=== PATIENT | female | born 1960 | race Caucasian/White ===

== ENCOUNTER → 2016-08-11 | Outpatient (CLI) | payer OTHER ==
--- NOTE | 2016-08-11 13:31 | CT ---
EXAMINATION TYPE: CT sinus wo con DATE OF EXAM: 08/11/2016 1:17 PM COMPARISON: NONE HISTORY: Patient complains of recurrent sinus infections, pressure, and headaches. CT DLP: 622.3 mGycm Automated exposure control for dose reduction was used. FINDINGS: There is a nasal septal deviation. There is no significant mucosal thickening of the visualized paran dona sinuses. Intracranial intraorbital structures have a normal appearance. Nasopharynx and oropharynx are symmetr ic. IMPRESSION: NO CT EVIDENCE OF SINUSITIS.
== END ==
LOC: RADCTMAIN 13:01
PROVIDERS: ATTEND Otolaryngology
DX: J32.9 Chronic sinusitis, unspecified (principal)
CPT/HCPCS: 70486

== ENCOUNTER → 2016-11-03 | Outpatient (CLI) | payer OTHER ==
[2016-11-03 10:16] LABS: EKG EKG PERFORMED
[2016-11-03 10:41] LABS: Basophils % (A) 0 %; CH 31.5; CHCM 33.7; Eosinophils # (A) 0.2 k/uL (0-0.7); Eosinophils % (A) 3 %; HCT 41.6 % (34.0-46.0); HGB 13.9 gm/dL (11.4-16.0); Luc # (Auto) 0.25; Luc % (Auto) 3; Lymphocytes % (A) 26 %; MCH 31.4 pg (25.0-35.0); MCHC 33.4 g/dL (31.0-37.0); Mean Platelet Volume 7.4; Monocytes # (A) 0.5 k/uL (0-1.0); Monocytes % (A) 7 %; Neutrophils # (A) 4.5 k/uL (1.3-7.7); Neutrophils % (A) 60 %; RBC 4.42 m/uL (3.80-5.40); RDW 13.1 % (11.5-15.5); WBC 7.5 k/uL (3.8-10.6)
[2016-11-03 10:53] LABS: Anion Gap 8 mmol/L; Blood Urea Nitrogen 19 mg/dL (7-17); Calcium 9.4 mg/dL (8.4-10.2); Carbon Dioxide 28 mmol/L (22-30); Chloride 106 mmol/L (98-107); Glucose 97 mg/dL (74-99); Non-African American GFR(MDRD) >60 (>60 ml/min/1.73 sqM); Potassium 4.5 mmol/L (3.5-5.1); Sodium 142 mmol/L (137-145)
== END | disposition home or self-care (01) ==
LOC: LABWHC1 10:05
PROVIDERS: ATTEND Obstetrics & Gynecology
DX: Z01.810 Encounter for preprocedural cardiovascular examination (principal); Z01.812 Encounter for preprocedural laboratory examination
CPT/HCPCS: 80048; 85025; 93005

== ENCOUNTER 2016-11-11 05:56 | Observation (INO) | payer OTHER ==
[2016-11-06 14:48] VITALS: BMI 24.5
--- NOTE | 2016-11-10 18:12 | P.HPOB ---
History of Present Illness H&P Date: 11/10/16 Chief Complaint: Pelvic organ prolapse 56-year-old presents for total vaginal hysterectomy with anterior repair. She has a grade 2 cystocele with uterine prolapse. Review of Systems All systems: negative Constitutional: Denies chills, Denies fever Eyes: denies blurred vision, denies pain Ears, nose, mouth and throat: Denies headache, Denies sore throat Cardiovascular: Denies chest pain, Denies shortness of breath Respiratory: Denies cough Gastrointestinal: Denies abdominal pain, Denies diarrhea, Denies nausea, Denies vomiting Genitourinary: Denies dysuria, Denies hematuria Musculoskeletal: Denies myalgias Integumentary: Denies pruritus, Denies rash Neurological: Denies numbness, Denies weakness Psychiatric: Denies anxiety, Denies depression Endocrine: Denies fatigue, Denies weight change Past Medical History Past Medical History: Asthma, COPD, Osteoarthritis (OA) Additional Past Medical History / Comment(s): STRESS INCONTINENCE ,KIDNEY STONES , IRREGULAR HEARTBEAT,CLAUSTROPHOBIA History of Any Multi-Drug Resistant Organisms: None Reported Past Surgical History: Cholecystectomy Additional Past Surgical History / Comment(s): WISDOM TEETH Past Anesthesia/Blood Transfusion Reactions: No Reported Reaction Past Psychological History: Anxiety, Depression, Panic Disorder Smoking Status: Current every day smoker Additional Past Alcohol Use History / Comment(s): HISTORY OF CLAUSTROPHOBIA - Past Family History Mother Family Medical History: No Reported History Medications and Allergies Home Medications Medication Instructions Recorded Confirmed Type Albuterol Inhaler [Ventolin Hfa 2 puff INHALATION DIRECTED PRN 01/08/1511/04 History Inhaler] Budesonide-Formot 160-4.5 Mcg 1 puff INHALATION BID 01/08/15 11/04/16 History [Symbicort 160-4.5 Mcg Inhaler] Carvedilol [Carvedilol] 12.5 mg PO DAILY 01/08/15 11/04/16 History Ikemwck-Zire-Xadq [id number] 2 each PO Q6HR PRN 11/04/16 11/04/16 History [Excedrin] Carvedilol [Coreg] 6.25 mg PO 2100 11/04/16 11/04/16 History Fluticasone Nasal [place] [Flonase 2 spr EA NOSTRIL DAILY 11/04/16 11/04/16 History Nasal [place]] Multivitamin [Multiple Vitamins] 1 each PO DAILY 11/04/16 11/06/16 History Zolpidem Tartrate [Ambien Cr] 12.5 mg PO HS 11/04/16 11/04/16 History Acetaminophen Tab [Tylenol Tab] 1,000 mg PO Q6HR PRN 11/06/16 11/06/16 History Allergies Allergy/AdvReac Type Severity Reaction Status Date / Time codeine Allergy Rash/Hives Verified 11/04/16 13:28 hydrocodone bitartrate Allergy Nausea & Verified 11/04/16 13:28 [From Vicodin] Vomiting steroids Allergy Rapid Uncoded 11/04/16 13:28 Heart Rate Exam Osteopathic Statement: *. No significant issues noted on an osteopathic structural exam other than those noted in the History and Physical/Consult. Heart: Regular rate and rhythm Lungs: Clear to auscultation bilaterally Abdomen: Soft, nontender Extremities: Negative Homans sign Assessment and Plan (1) Cystocele with uterine prolapse Status: Acute Plan: 1. Total vaginal hysterectomy with anterior repair
[~2016-11-11 05:56] MED LIST: DEXAMETHASONE SOD PHOSPHATE 10 MG/ML 1 ML VIAL IV ONE; LIDOCAINE 1% 20 ML VIAL (10MG/ML) FOR IV START INTRADERMA PRN; MIDAZOLAM 2 MG/2 ML VIAL IV PRN; ONDANSETRON 4 MG/2 ML VIAL IVP ONE; SCOPOLAMINE 1.5MG/72HR PATCH TRANSDERM ONE; ceFAZolin 2 GM in SODIUM CHLORIDE 0.9% 100 ML IVPB ONE
[2016-11-11] MEDS: LACTATED RINGERS 1,000 ML IV SCH ×2 (06:13→13:55)
[2016-11-11] MEDS ORDERED: BACITRACIN 500 UNIT/GM OINT 28.4 GM TUBE TOPICAL ONE (07:55)
[2016-11-11] MEDS ORDERED: VASOPRESSIN 20 UNIT/ML 1 ML VIAL SQ ONE (07:56)
[2016-11-11] MEDS ORDERED: LACTATED RINGERS 1,000 ML IV ONE (08:29)
[2016-11-11] MEDS: HYDROmorphone 1 MG/ML 1 ML SYRINGE IVP PRN ×2 (09:15→09:20)
--- NOTE | 2016-11-11 09:25 | P.OP ---
Date of Procedure: 11/11/16 Preoperative Diagnosis: 1. Cystocele with uterine prolapse Postoperative Diagnosis: 1. Cystocele with uterine prolapse Procedure(s) Performed: Total vaginal hysterectomy with anterior repair Implants: Anesthesia: RANULFO Surgeon: Bryanna Watkins Director External Communications #1: Edna Farmer Estimated Blood Loss (ml): 30 IV fluids (ml): 1,000 Urine output (ml): 200 Pathology: other (Uterus, cervix, vaginal mucosa) Condition: stable Disposition: PACU Indications for Procedure: Operative Findings: Normal uterus, grade 2 cystocele, normal ovaries and tubes. Description of Procedure: Patient is taken the operating room and general anesthesia was obtained without difficulty. She is prepped draped in normal sterile fashion dorsal body position, legs placed in candycane stirrups. Weighted speculum placed in vagina the anterior lip the cervix was grasped with single-tooth tenaculum. The cervical vaginal junction was infiltrated with diluted vasopressin. A circumferential incision was made with the scalpel. The vaginal mucosa was peeled off of the cervix. The cardinal ligaments were clamped with [place] clamps cut and suture ligated. The posterior peritoneum was entered sharply with the Metzenbaums and the Iza weighted speculum was placed. The uterosacral ligaments were clamped with [place] clamps, cut and suture ligated. The anterior peritoneum was entered sharply with the Metzenbaums and another anterior retractor was placed. The uterine arteries on both sides were clamped cut and suture ligated up the broad ligaments and then to the utero-ovarian ligaments. These were then clamped cut and suture ligated as well. The uterus was removed from the vagina. Hemostasis was assured. Peritoneum was closed using 0 Vicryl in a pursestring suture. The anterior vaginal mucosa was grasped with Allis clamps and then infiltrated with diluted vasopressin. A linear incision was made with the Metzenbaums. The vaginal mucosa was peeled off the underlying fascia. Francie plication stitches were then placed. The excess vaginal mucosa was trimmed. Vaginal mucosa was then closed using 0 Vicryl in a running locked fashion. Alonzo catheter was placed and clear urine was seen. Vaginal packing was then placed. Patient tolerated the procedure well. Sponge and instrument counts are correct 2. She was taken to recovery room in stable condition.
[2016-11-11] MEDS ORDERED: METOCLOPRAMIDE 5 MG/ML 2 ML VIAL IVP PRN (09:26)
[2016-11-11] MEDS ORDERED: ACETAMINOPHEN TAB 500 MG TAB PO PRN (09:26)
[2016-11-11] MEDS ORDERED: HYDROcodone/APAP 7.5-325MG 1 EACH TAB PO PRN (09:26)
[2016-11-11] MEDS ORDERED: ONDANSETRON 4 MG/2 ML VIAL IVP PRN (09:26)
[2016-11-11] MEDS ORDERED: SIMETHICONE 80 MG CHEWABLE PO PRN (09:26)
[2016-11-11] MEDS ORDERED: ASPIRIN-ACET-CAFF 250-250-65MG 1 EACH TAB PO PRN (09:26)
[2016-11-11] MEDS ORDERED: diphenhydrAMINE 50 MG/ML 1 ML VIAL IVP PRN (09:26)
[2016-11-11] MEDS ORDERED: ALBUTEROL NEBULIZED 2.5 MG/3 ML INHALATION PRN (09:26)
[2016-11-11] MEDS ORDERED: fentaNYL (PF) 50 MCG/ML 2 ML AMP IV ONE ×2 (09:35→09:54)
[2016-11-11] MEDS ORDERED: FLUTICASONE 50MCG/SPRAY NASAL 16GM EA NOSTRIL SCH (10:00)
[2016-11-11] MEDS: KETOROLAC 30 MG/ML 1 ML VIAL IVP PRN ×2 (11:56→18:40)
[2016-11-11] MEDS: CARVEDILOL 12.5 MG TAB PO SCH (13:57)
[2016-11-11] MEDS: SENNOSIDES-DOCUSATE SODIUM 1 EACH TAB PO SCH ×2 (15:09→20:32)
[2016-11-11] MEDS: SYMBICORT 160-4.5 MCG INHALER INHALATION SCH ×3 (16:46→19:07)
[2016-11-11 17:38] VITALS: RESP 16
[2016-11-11] MEDS ORDERED: ZOLPIDEM 5 MG TAB PO SCH (21:00)
[2016-11-11] MEDS ORDERED: CARVEDILOL 6.25 MG TAB PO SCH (21:00)
[2016-11-12] MEDS: KETOROLAC 30 MG/ML 1 ML VIAL IVP PRN ×2 (01:43→08:26)
[2016-11-12] MEDS: LACTATED RINGERS 1,000 ML IV SCH (01:56)
[2016-11-12 06:04] LABS: Basophils % (A) 0 %; CH 31.4; CHCM 32.8; Eosinophils # (A) 0.1 k/uL (0-0.7); Eosinophils % (A) 1 %; HCT 37.6 % (34.0-46.0); HDW 2.46; HGB 12.2 gm/dL (11.4-16.0); Luc # (Auto) 0.22; Luc % (Auto) 3; Lymphocytes # (A) 2.2 k/uL (1.0-4.8); Lymphocytes % (A) 25 %; MCH 31.1 pg (25.0-35.0); MCHC 32.4 g/dL (31.0-37.0); MCV 96.2 fL (80.0-100.0); Mean Platelet Volume 7.5; Monocytes # (A) 0.6 k/uL (0-1.0); Monocytes % (A) 7 %; Neutrophils # (A) 5.7 k/uL (1.3-7.7); Neutrophils % (A) 65 %; RBC 3.91 m/uL (3.80-5.40); RDW 13.4 % (11.5-15.5); WBC 8.7 k/uL (3.8-10.6); WBC (Perox) 9.01
[2016-11-12] MEDS: CARVEDILOL 12.5 MG TAB PO SCH (08:47)
[2016-11-12] MEDS: SENNOSIDES-DOCUSATE SODIUM 1 EACH TAB PO SCH (08:47)
[2016-11-12] MEDS: SYMBICORT 160-4.5 MCG INHALER INHALATION SCH (09:28)
[2016-11-12 09:52] VITALS: BP 110/66; PULSE 56; TEMP 98.4
--- NOTE | 2016-11-12 11:14 | P.DS ---
Providers Date of admission: 11/12/16 03:54 Expected date of discharge: 11/12/16 Attending physician: Bryanna Watkins Primary care physician: Acosta Galaviz - Discharge Diagnosis(es) (1) Cystocele with uterine prolapse Current Visit: Yes Status: Resolved (2) H/O total vaginal hysterectomy Current Visit: Yes Status: Acute Hospital Course: Patient presented for total vaginal hysterectomy with anterior repair and did undergo this procedure without complication. Postoperative day #1 she was doing very well. Tolerating regular diet, ambulating voiding without difficulty. Her pain is well-controlled. She denies nausea, vomiting, chest pain, shortness of breath or calf pain. She'll be discharged home postoperative day #1 in stable condition to follow-up with me in 4 weeks. Plan - Discharge Summary New Discharge Prescriptions: New HYDROcodone/APAP 5-325MG [Barn[place] 5-325] 1 - 2 tab PO Q6HR PRN #30 tab PRN Reason: Pain Ibuprofen [Motrin] 600 mg PO Q6HR PRN #30 tab PRN Reason: Mild Pain Or Fever >= 100.5 No Action Carvedilol [Carvedilol] 12.5 mg PO DAILY Budesonide-Formot 160-4.5 Mcg [Symbicort 160-4.5 Mcg Inhaler] 1 puff INHALATION RT-BID Albuterol Inhaler [Ventolin Hfa Inhaler] 2 puff INHALATION RT-Q4H PRN PRN Reason: Shortness Of Breath Fluticasone Nasal [place] [Flonase Nasal [place]] 2 spr EA NOSTRIL DAILY Zolpidem Tartrate [Ambien Cr] 12.5 mg PO HS [id number]-Huxi-Zpwl [id number] [Excedrin] 2 tab PO Q6HR PRN PRN Reason: Headache Multivitamin [Multiple Vitamins] 1 tab PO DAILY Carvedilol [Coreg] 6.25 mg PO HS@2100 Acetaminophen Tab [Tylenol Tab] 1,000 mg PO Q6HR PRN PRN Reason: Pain Discharge Medication List Albuterol Inhaler [Ventolin Hfa Inhaler] 2 puff INHALATION RT-Q4H PRN 01/08/15 [ History] Budesonide-Formot 160-4.5 Mcg [Symbicort 160-4.5 Mcg Inhaler] 1 puff INHALATION RT-BID 01/08/15 [History] Carvedilol [Carvedilol] 12.5 mg PO DAILY 01/08/15 [History] Jxzikal-Xquq-Kptd [id number] [Excedrin] 2 tab PO Q6HR PRN 11/04/16 [History] Carvedilol [Coreg] 6.25 mg PO HS@2100 11/04/16 [History] Fluticasone Nasal [place] [Flonase Nasal [place]] 2 spr EA NOSTRIL DAILY 11/04/16 [ History] Multivitamin [Multiple Vitamins] 1 tab PO DAILY 11/04/16 [History] Zolpidem Tartrate [Ambien Cr] 12.5 mg PO HS 11/04/16 [History] Acetaminophen Tab [Tylenol Tab] 1,000 mg PO Q6HR PRN 11/06/16 [History] HYDROcodone/APAP 5-325MG [[place] 5-325] 1 - 2 tab PO Q6HR PRN #30 tab 11/12/16 [ Rx] Ibuprofen [Motrin] 600 mg PO Q6HR PRN #30 tab 11/12/16 [Rx] Follow up Appointment(s)/Referral(s): Bryanna Watkins DO [Doctor of Osteopathic Medicine] - 4 Weeks Patient Instructions/Handouts: *Surgery [facility] - Scopalamine Patch Instructions
== END 2016-11-12 12:05 | disposition home or self-care (01) ==
LOC: OR 05:56 → 6PED 09:06 → OR 11-12 03:54 → 6PED 11-12 03:54
PROVIDERS: ADMIT Obstetrics & Gynecology; ATTEND Obstetrics & Gynecology
DX: N81.4 Uterovaginal prolapse, unspecified (principal); N39.3 Stress incontinence (female) (male); F40.240 Claustrophobia; Z87.442 Personal history of urinary calculi; J44.9 Chronic obstructive pulmonary disease, unspecified; M19.90 Unspecified osteoarthritis, unspecified site; I49.9 Cardiac arrhythmia, unspecified; F32.9 Major depressive disorder, single episode, unspecified; F41.0 Panic disorder [episodic paroxysmal anxiety]; F17.200 Nicotine dependence, unspecified, uncomplicated; Z79.899 Other long term (current) drug therapy; Z79.82 Long term (current) use of aspirin; Z88.5 Allergy status to narcotic agent; Z88.8 Allergy status to other drugs, medicaments and biological substances
CPT/HCPCS: 58260; 94640 ×2; 86900; 86901; 88305; 85025; 86850; 88302; G0378; J0690; J2405; J3010; J1885 ×2; J1170

== ENCOUNTER 2018-12-15 17:57 | Observation (INO) | payer OTHER ==
[2018-12-15] MEDS ORDERED: SODIUM CHLORIDE 0.9% 1,000 ML IV ONE (18:23)
--- NOTE | 2018-12-15 18:25 | ED ---
General Adult HPI - General Chief complaint: Shortness of Breath Stated complaint: Dizzy, arm/leg tingling, chest pain Time Seen by Provider: 12/15/18 18:12 Source: patient Mode of arrival: wheelchair Limitations: no limitations - History of Present Illness Initial comments: 50-year-old female presenting with shortness of breath. Patient states she was at home when she suddenly felt like she was unable to breathe, like there was a "stone in her head", and had tingling of both upper and lower extremities. She states this is third time this is happened in 2 weeks, and she has no previous history of similar episodes. She has had a previous history of tobacco abuse and has tried her rescue inhaler for the symptoms without relief. She states she presented to her primary care physician last week who treated her's for sinus infection but otherwise did not find any cause for her symptoms. She denies any chest pain, history of DVT/PE, recent surgery, active cancer. She denies any fevers or leg swelling. Denies any previous history of thyroid disease. - Related Data Home Medications Medication Instructions Recorded Confirmed Albuterol Inhaler [Ventolin Hfa 2 puff INHALATION RT-Q4H PRN 01/08/15 12/15/18 Inhaler] Budesonide-Formot 160-4.5 Mcg 1 puff INHALATION RT-BID 01/08/15 12/15/18 [Symbicort 160-4.5 Mcg Inhaler] Carvedilol 12.5 mg PO DAILY 01/08/15 12/15/18 Carvedilol [Coreg] 6.25 mg PO HS@2100 11/04/16 12/15/18 Multivitamin [Multiple Vitamins] 1 tab PO DAILY 11/04/16 12/15/18 Zolpidem Tartrate [Ambien Cr] 12.5 mg PO HS 11/04/16 12/15/18 Ascorbic Acid [Vitamin C] 1,000 mg PO DAILY 12/15/18 12/15/18 Cefdinir [Omnicef] 300 mg PO BID 12/15/18 12/15/18 Allergies Allergy/AdvReac Type Severity Reaction Status Date / Time codeine Allergy Rash/Hives Verified 12/15/18 19:19 hydrocodone bitartrate Allergy Nausea & Verified 12/15/18 19:19 [From Vicodin] Vomiting steroids Allergy Rapid Uncoded 12/15/18 18:08 Heart Rate Review of Systems ROS Statement: Those systems with pertinent positive or pertinent negative responses have been documented in the HPI. Review of Systems Constitutional: Denies fever, chills Eyes: Denies change in vision, Denies pain Ears, nose, mouth, throat: Denies headaches, Denies sore throat Cardiovascular: Denies chest pain. Denies palpitations Respiratory: Positive shortness of breath, Denies cough Gastrointestinal: Denies abdominal pain. Denies nausea, vomiting, diarrhea. Genitourinary: Denies hematuria, Denies infections Musculoskeletal: Denies pain, Denies swelling Integumentary: Denies rash Neurological: Denies headache, focal weakness, focal numbness Psychiatric: Denies anxiety, Denies depression Hematologic/Lymphatic: Denies easy bleeding or bruising ROS Other: All systems not noted in ROS Statement are negative. Past Medical History Past Medical History: Atrial Flutter Additional Past Medical History / Comment(s): STRESS INCONTINENCE ,KIDNEY STONES, IRREGULAR HEARTBEAT,CLAUSTROPHOBIA History of Any Multi-Drug Resistant Organisms: None Reported Past Surgical History: Cholecystectomy Additional Past Surgical History / Comment(s): WISDOM TEETH Past Anesthesia/Blood Transfusion Reactions: No Reported Reaction Past Psychological History: No Psychological Hx Reported Smoking Status: Former smoker Past Alcohol Use History: Daily Past Drug Use History: None Reported - Past Family History Mother Family Medical History: Dementia Father Family Medical History: COPD Additional Family Medical History / Comment(s): 4 vessel CABG, 6 years ago General Exam - General Exam Comments Initial Comments: General: Awake, alert, No acute Distress HENT: Normocephalic. Atraumatic Eyes: PERRL. EOMI. No scleral icterus. No injected conjunctiva Neck: Full ROM Chest/Lungs: Clear to auscultation bilaterally. No wheezing, rhonchi, or rales Cardiac: Regular rate, rhythm. No murmurs or rubs Abdomen/GI: Soft, nontender, nondistended. No rebound, guarding, or rigidity. Musculoskeletal: Full ROM Skin: Warm, dry, intact Neurologic: A/Ox3, no weakness, no sensory deficit, no abnormal gait, no coordination deficit Limitations: no limitations Course Vital Signs 12/15/18 12/15/18 12/15/18 18:03 19:50 21:14 Temperature 97.7 F 97.7 F Pulse Rate 65 63 Respiratory 16 12 Rate Blood Pressure 146/72 132/69 O2 Sat by Pulse 100 97 97 Oximetry Medical Decision Making - Medical Decision Making 58-year-old female presenting with shortness of breath. Initial exam the patient is awake, alert, no acute distress. VSS. Patient's wells PE score is 1.5. Her d-dimer was negative. Her lung sounds are clear and she is not wheezing. There is no evidence of pneumonia. The remainder of her laboratory workup is negative for acute process. EKG showed normal sinus rhythm with T- wave inversions in 3 and aVF which are different than EKG from 2017. Heart score 4. With Dr. sheet is agreeable to admission for stress test in the a.m. - Lab Data Result diagrams: 12/15/18 18:33 12/15/18 18:33 Lab Results 12/15/18 12/15/18 12/15/18 Range/Units 18:33 18:33 18:33 WBC 6.1 (3.8-10.6) k/uL RBC 4.28 (3.80-5.40) m/uL Hgb 12.9 (11.4-16.0) gm/dL Hct 39.3 (34.0-46.0) % MCV 91.9 (80.0-100.0) fL MCH 30.2 (25.0-35.0) pg MCHC 32.9 (31.0-37.0) g/dL RDW 13.7 (11.5-15.5) % Plt Count 227 (150-450) k/uL Neutrophils % 51 % Lymphocytes % 33 % Monocytes % 8 % Eosinophils % 4 % Basophils % 1 % Neutrophils # 3.1 (1.3-7.7) k/uL Lymphocytes # 2.0 (1.0-4.8) k/uL Monocytes # 0.5 (0-1.0) k/uL Eosinophils # 0.2 (0-0.7) k/uL Basophils # 0.0 (0-0.2) k/uL D-Dimer 0.52 (<0.60) mg/L FEU Sodium 140 (137-145) mmol/L Potassium 4.0 (3.5-5.1) mmol/L Chloride 106 (98-107) mmol/L Carbon Dioxide 27 (22-30) mmol/L Anion Gap 7 mmol/L BUN 28 H (7-17) mg/dL Creatinine 0.78 (0.52-1.04) mg/dL Est GFR (CKD-EPI)AfAm >90 (>60 ml/min/1.73 sqM) Est GFR (CKD-EPI)NonAf 84 (>60 ml/min/1.73 sqM) Glucose 106 H (74-99) mg/dL Calcium 9.6 (8.4-10.2) mg/dL Magnesium 1.8 (1.6-2.3) mg/dL Troponin I (0.000-0.034) ng/mL TSH 2.040 (0.465-4.680) mIU/L 12/15/18 Range/Units 19:50 WBC (3.8-10.6) k/uL RBC (3.80-5.40) m/uL Hgb (11.4-16.0) gm/dL Hct (34.0-46.0) % MCV (80.0-100.0) fL MCH (25.0-35.0) pg MCHC (31.0-37.0) g/dL RDW (11.5-15.5) % Plt Count (150-450) k/uL Neutrophils % % Lymphocytes % % Monocytes % % Eosinophils % % Basophils % % Neutrophils # (1.3-7.7) k/uL Lymphocytes # (1.0-4.8) k/uL Monocytes # (0-1.0) k/uL Eosinophils # (0-0.7) k/uL Basophils # (0-0.2) k/uL D-Dimer (<0.60) mg/L FEU Sodium (137-145) mmol/L Potassium (3.5-5.1) mmol/L Chloride (98-107) mmol/L Carbon Dioxide (22-30) mmol/L Anion Gap mmol/L BUN (7-17) mg/dL Creatinine (0.52-1.04) mg/dL Est GFR (CKD-EPI)AfAm (>60 ml/min/1.73 sqM) Est GFR (CKD-EPI)NonAf (>60 ml/min/1.73 sqM) Glucose (74-99) mg/dL Calcium (8.4-10.2) mg/dL Magnesium (1.6-2.3) mg/dL Troponin I <0.012 (0.000-0.034) ng/mL TSH (0.465-4.680) mIU/L Disposition Clinical Impression: Chest pain Disposition: ADMITTED IP TO THIS [facility] Decision to Admit Reason: Admit from EC Decision Date: 12/15/18 Decision Time: 21:02
[2018-12-15 18:53] LABS: African American GFR (CKD) >90 (>60 ml/min/1.73 sqM); Anion Gap 7 mmol/L; Blood Urea Nitrogen 28 mg/dL (7-17); Calcium 9.6 mg/dL (8.4-10.2); Carbon Dioxide 27 mmol/L (22-30); Chloride 106 mmol/L (98-107); Glucose 106 mg/dL (74-99); Magnesium 1.8 mg/dL (1.6-2.3); Sodium 140 mmol/L (137-145)
[2018-12-15 18:54] LABS: Basophils % (A) 1 %; Eosinophils # (A) 0.2 k/uL (0-0.7); Eosinophils % (A) 4 %; HCT 39.3 % (34.0-46.0); HGB 12.9 gm/dL (11.4-16.0); Lymphocytes % (A) 33 %; MCH 30.2 pg (25.0-35.0); MCHC 32.9 g/dL (31.0-37.0); MCV 91.9 fL (80.0-100.0); Mean Platelet Volume 7.8; Monocytes # (A) 0.5 k/uL (0-1.0); Monocytes % (A) 8 %; Neutrophils # (A) 3.1 k/uL (1.3-7.7); Neutrophils % (A) 51 %; Platelet Count 227 k/uL (150-450); RBC 4.28 m/uL (3.80-5.40); RDW 13.7 % (11.5-15.5); WBC 6.1 k/uL (3.8-10.6)
--- NOTE | 2018-12-15 19:16 | XR ---
EXAMINATION TYPE: XR chest 2V DATE OF EXAM: 12/15/2018 COMPARISON: Prior chest x-ray 08/31/2013 HISTORY: Pain, dizziness TECHNIQUE: Frontal and lateral views of the chest are obtained. FINDINGS: There is no focal air space opacity, pleural effusion, or pneumothorax seen. The cardiac silhouette size is within normal limits. The osseous structures are intact. There are overlying car diac leads. There is improvement in visualization of the left costophrenic angle. IMPRESSION: No acute cardiopulmonary process.
[2018-12-15] MEDS ORDERED: ASPIRIN 325 MG TAB PO STA (19:59)
[2018-12-15] MEDS ORDERED: IBUPROFEN 400 MG TAB PO PRN (20:54)
[2018-12-15] MEDS ORDERED: NALOXONE 0.4 MG/ML 1 ML VIAL IV PRN (20:54)
[2018-12-15] MEDS ORDERED: ACETAMINOPHEN TAB 325 MG TAB PO PRN (20:54)
[2018-12-15] MEDS ORDERED: ALBUTEROL NEBULIZED 2.5 MG/3 ML INHALATION PRN (20:59)
[2018-12-15] MEDS ORDERED: CARVEDILOL 6.25 MG TAB PO SCH (21:00)
[2018-12-15] MEDS ORDERED: SODIUM CHLORIDE 0.9% 1,000 ML IV SCH (21:00)
[2018-12-15] MEDS ORDERED: ZOLPIDEM 5 MG TAB PO SCH (21:00)
[2018-12-15] MEDS: CEFDINIR 300 MG CAP PO SCH (22:38)
[2018-12-16] MEDS ORDERED: CARVEDILOL 12.5 MG TAB PO SCH (07:30)
[2018-12-16] MEDS ORDERED: SYMBICORT 160-4.5 MCG INHALER INHALATION SCH (08:00)
[2018-12-16] MEDS: MULTIVITAMINS, THERA 1 EACH TAB PO SCH ×2 (09:25→09:26)
[2018-12-16] MEDS: CEFDINIR 300 MG CAP PO SCH (09:25)
--- NOTE | 2018-12-16 09:43 | CONS ---
CONSULTATION Rita Ibrahim is a 58-year-old lady admitted to the hospital through the emergency room. This lady came in with complaints of tingling all over her body. She also had a sinus infection. She felt heaviness in her head. She complained of having some tingling all over and she thinks she had an out of body experience, but is unable to describe what that may be. She is resting comfortably at the time of my evaluation. She insisted repeatedly that she did not have chest pain. I explained to her that she has a diagnosis of chest pain. Then finally, she indicated that she had sharp pain in the chest lasting a few seconds this morning after she woke up. The quality of pain was sharp, duration was less than 5 seconds. She is resting comfortably without symptoms. She says she quit smoking in June. PAST MEDICAL HISTORY: Past medical history is remarkable for a stress test 5 years ago that was negative. She was placed on a beta russ and did not like the side effects. She has stress incontinence, renal stones and complains of palpitations. She is status post cholecystectomy. MEDICATIONS: Medications at home include vitamin supplements and she takes Symbicort inhaler and carvedilol 12.5 mg b[address]i.d. She sees Dr. Acosta Galaviz as an outpatient. PHYSICAL EXAMINATION: On examination, blood pressure is 120/70, pulse rate is 68 per minute regular HEENT unremarkable. Fundus was not examined by me. Neck is supple. No JVD. I do not hear a carotid bruit. There is no thyromegaly. Heart exam reveals S1, S2 heard normally without a rub, murmur or gallop. Lungs are clear. Abdomen is soft, nontender. Lower extremities reveal normal pulses. No edema. Central nervous system is normal. EKG revealed a sinus mechanism with inferolateral nonspecific ST abnormality. LABORATORY DATA: Laboratory data revealed unremarkable troponins. The patient's D-dimer was normal. Troponins are normal. Renal function is normal. Thyroid functions are normal. IMPRESSION: 1. Chest pain does not seem to be the issue at this time. She denied chest pain finally admitted to 4 to 5 seconds of chest pain, sharp in nature, very atypical. 2. History of some palpitation. 3. Tingling all over her body of unclear etiology. 4. History of smoking in the past, which she quit in June. RECOMMENDATIONS: I am recommending that we will do a 24-hour Holter and an echocardiogram, increase activity, and if she has no further symptoms she can be discharged. I will see her in the office in a week and at that time, consider stress testing. I discussed my thoughts in detail with the patient. Thank you very much for the consult. BERNARDO / RIVERA: [id number] /
[2018-12-16 12:20] VITALS: BP 122/71; PULSE 59; RESP 16; TEMP 98.1
[2018-12-16] MEDS ORDERED: FLUTICASONE 50MCG/SPRAY NASAL 16GM EA NOSTRIL PRN (12:24)
[2018-12-16] MEDS ORDERED: SALINE NASAL GEL 14.1 GM TUBE TOPICAL PRN (12:25)
--- NOTE | 2018-12-16 13:35 | P.HPIM ---
History of Present Illness This is a pleasant 58 years old female with past medical history of atrial fibrillation/flutter, stress incontinence and kidney stones. She presents with a few nonspecific symptoms, she was feeling some shortness of breath and pal pitation and her heart and tingling in her both arms and legs for at least 2 weeks, more in the legs. Also patient was complaining from chronic neck pain for more than a year. Most of her symptoms has been going on for 1-2 weeks except for palpitation which was going on for 5-6 years. Also she was recently started on antibiotics for her sinusitis where she has clogged nose going on, also she is on Flonase at home but she has to sneezing, coughing or sore throat. Yesterday she felt like lightheadedness and about to pass also decided to come to emergency room however patient did not actually pass out. No more lightheadedness today Patient is hemodynamically stable. Labs including CBC, BMP were unremarkable, troponin x3 were negative, TSH 2.0. D-dimer at 0.52 which is within normal li mits . Chest x-ray: No acute process as per radiologist Patient has been evaluated by client support manager who recommended a heart monitor with 24-hour Holter and echocardiogram and follow-up with the client support manager in 1 week to consider stress test. Patient is a smoker and decided to quit last June together with her . Currently patient is on Coreg, aspirin, 75, also she is on antibiotic cefdinir and ibuprofen. Review of systems CONSTITUTIONAL: No fever, no malaise, no fatigue. HEENT: No recent visual problems or hearing problems. Denied any sore throat. CARDIOVASCULAR: No orthopnea, PND, no palpitations, no syncope. PULMONARY: No shortness of breath, no cough, no hemoptysis. GASTROINTESTINAL: No diarrhea, no nausea, no vomiting, no abdominal pain. Normoactive bowel sounds. NEUROLOGICAL: No headaches, no weakness, no numbness. HEMATOLOGICAL: Denies any bleeding or petechiae. GENITOURINARY: Denies any burning micturition, frequency, or urgency. MUSCULOSKELETAL/RHEUMATOLOGICAL: Denies any joint pain, swelling, or any muscle pain. ENDOCRINE: Denies any polyuria or polydipsia. Physical exam GENERAL: The patient is alert and oriented x3, not in any acute distress. Well developed, well nourished. HEENT: Pupils are round and equally reacting to light. EOMI. No scleral icterus. No conjunctival pallor. Normocephalic, atraumatic. No pharyngeal erythema. No thyromegaly. CARDIOVASCULAR: S1 and S2 present. No murmurs, rubs, or gallops. PULMONARY: Chest is clear to auscultation, no wheezing or crackles. ABDOMEN: Soft, nontender, nondistended, normoactive bowel sounds. No palpable organomegaly. MUSCULOSKELETAL: No joint swelling or deformity. EXTREMITIES: No cyanosis, clubbing, or pedal edema. NEUROLOGICAL: Gross neurological examination did not reveal any focal deficits. Cranial nerves are grossly intact. Motor exam shows strength 5/5 in all extremities with sensation intact and all extremities. Meningeal signs are absent. SKIN: No rashes. Assessment -Chest pain, atypical of cardiac causes with negative d-dimer -Palpitation with lightheadedness, continue with 24-hour Holter and follow-up with client support manager -Acute on chronic sinusitis, on antibiotic -Chronic neck pain, mild. -Tingling in her upper and lower extremity for at least 2 weeks as per patient. With normal neurological exam Plan -Continue with client support manager recommendation of echocardiogram and 24-hour Holter. -Was cleared by client support manager, patient can be discharged home and follow-up with a client support manager in 1 week to consider stress test. Patient made aware of this plan and she agree with it -Consult neurologist for her numbness and neck pain. Continue with DVT and GI prophylaxis Patient follow-up with Oh Lin with Dr. Galaviz office, patient was instructed to follow up with her PCP in one week upon discharge and she agrees Past Medical History Past Medical History: Atrial Flutter Additional Past Medical History / Comment(s): STRESS INCONTINENCE ,KIDNEY STONES, IRREGULAR HEARTBEAT,CLAUSTROPHOBIA History of Any Multi-Drug Resistant Organisms: None Reported Past Surgical History: Cholecystectomy Additional Past Surgical History / Comment(s): WISDOM TEETH Past Anesthesia/Blood Transfusion Reactions: No Reported Reaction Past Psychological History: No Psychological Hx Reported Smoking Status: Former smoker Past Alcohol Use History: Daily Past Drug Use History: None Reported - Past Family History Mother Family Medical History: Dementia Father Family Medical History: COPD Additional Family Medical History / Comment(s): 4 vessel CABG, 6 years ago Medications and Allergies Home Medications Medication Instructions Recorded Confirmed Type Budesonide-Formot 160-4.5 Mcg 1 puff INHALATION RT-BID 01/08/15 12/15/18 History [Symbicort 160-4.5 Mcg Inhaler] Carvedilol 12.5 mg PO DAILY 01/08/15 12/15/18 History RX: Albuterol Inhaler [Ventolin 2 puff INHALATION RT-Q4H PRN 01/08/15 12/15/18 History Hfa Inhaler] Carvedilol [Coreg] 6.25 mg PO HS@2100 11/04/16 12/15/18 History Multivitamin [Multiple Vitamins] 1 tab PO DAILY 11/04/16 12/15/18 History Zolpidem Tartrate [Ambien Cr] 12.5 mg PO HS 11/04/16 12/15/18 History Ascorbic Acid [Vitamin C] 1,000 mg PO DAILY 12/15/18 12/15/18 History Cefdinir [Omnicef] 300 mg PO BID 12/15/18 12/15/18 History Allergies Allergy/AdvReac Type Severity Reaction Status Date / Time codeine Allergy Rash/Hives Verified 12/15/18 19:19 hydrocodone bitartrate Allergy Nausea & Verified 12/15/18 19:19 [From Vicodin] Vomiting steroids Allergy Rapid Uncoded 12/15/18 18:08 Heart Rate Physical Exam Vitals: Vital Signs Temp Pulse Pulse Resp BP BP Pulse Ox 12/16/18 08:00 70 18 12/16/18 07:40 97.7 F 70 18 118/74 95 12/16/18 03:55 98.3 F 67 16 128/70 97 12/15/18 23:51 98.1 F 63 16 112/67 98 12/15/18 21:42 98.1 F 59 L 16 130/79 97 12/15/18 21:23 65 13 130/68 97 12/15/18 21:14 97 12/15/18 19:50 97.7 F 63 12 132/69 97 12/15/18 18:03 97.7 F 65 16 146/72 100 Intake and Output 12/15/18 12/16/18 12/16/18 22:59 06:59 14:59 Intake Total 600 Balance 600 Intake: Intake, IV Titration 600 Amount Sodium Chloride 0.9% 1, 600 000 ml @ 75 mls/hr IV . [id number] JUSTIN Rx#:[id number] Other: # Voids 4 2 Weight 63.503 kg Results CBC & Chem 7: 12/15/18 18:33 12/15/18 18:33 Labs: Abnormal Lab Results - Last 24 Hours (Table) 12/15/18 Range/Units 18:33 BUN 28 H (7-17) mg/dL Glucose 106 H (74-99) mg/dL Thrombosis Risk Factor Assmnt - Choose All That Apply Any of the Below Risk Factors Present?: Yes Each Factor Represents 1 point: Age 41-60 years, Varicose veins Other Risk Factors: No Other congenital or acquired thrombophilia - If yes, enter type in comment: No Thrombosis Risk Factor Assessment Total Risk Factor Score: 2 Thrombosis Risk Factor Assessment Level: Low Risk
--- NOTE | 2018-12-16 14:00 | P.CNNES ---
History of Present Illness Consult date: 12/16/18 Requesting physician: Ronald E Jacque Reason for Consult: Numbness/neck pain Chief complaint: "Out of body experience" Tingling all over History of Present Illness: 58 RH female admitted with chest pain but also c/o this weird "out of body experience" that she describes as feeling fuzzy and tingling all over her body. The most recent episode occurred while she was driving. She was actually able to keep maneuvering her vehicle. She could feel her heart beating, so she thought it might be heart related, but she has been checked out by cardiology while in- house. Patient states that each episode lasts around 5 minutes, she will come out of one but then in a little while go back to another one. She has had numerous episodes happen to her in the past as well. Denies specific visual, auditory, olfactory, gustatory or visceral aura. No witnessed repetitive behavior suspicious for automatism. No tonic-clonic activity, tongue biting, bowel/bladder incontinence or post-ictal confusion. No h/o head trauma or SECURITIES ADVISER infection. Otherwise, she denies complete loss of consciousness, migraine, diplopia, amaurosis, facial numbness or droop, vertigo, dysarthria, dysphagia, aphasia, other focal numbness/weakness not mentioned above, tremors, bowel/bladder incontinence or ataxia. Has chronic neck pain but no Lhermitte's or cervical radicular symptoms. Does have some psychosocial stressors ongoing in her life. Review of Systems I have performed a 14-point organ ROS with patient; pertinents are as per HPI. Past Medical History Past Medical History: Atrial Flutter Additional Past Medical History / Comment(s): STRESS INCONTINENCE ,KIDNEY STONES, IRREGULAR HEARTBEAT,CLAUSTROPHOBIA History of Any Multi-Drug Resistant Organisms: None Reported Past Surgical History: Cholecystectomy Additional Past Surgical History / Comment(s): WISDOM TEETH Past Anesthesia/Blood Transfusion Reactions: No Reported Reaction Past Psychological History: No Psychological Hx Reported Smoking Status: Former smoker Past Alcohol Use History: Daily Past Drug Use History: None Reported - Past Family History Mother Family Medical History: Dementia Father Family Medical History: COPD Additional Family Medical History / Comment(s): 4 vessel CABG, 6 years ago Medications and Allergies Home Medications Medication Instructions Recorded Confirmed Type Albuterol Inhaler [Ventolin Hfa 2 puff INHALATION RT-Q4H PRN 01/08/15 12/15/18 History Inhaler] Budesonide-Formot 160-4.5 Mcg 1 puff INHALATION RT-BID 01/08/15 12/15/18 History [Symbicort 160-4.5 Mcg Inhaler] Carvedilol 12.5 mg PO DAILY 01/08/15 12/15/18 History Carvedilol [Coreg] 6.25 mg PO HS@2100 11/04/16 12/15/18 History Multivitamin [Multiple Vitamins] 1 tab PO DAILY 11/04/16 12/15/18 History Zolpidem Tartrate [Ambien Cr] 12.5 mg PO HS 11/04/16 12/15/18 History Ascorbic Acid [Vitamin C] 1,000 mg PO DAILY 12/15/18 12/15/18 History Cefdinir [Omnicef] 300 mg PO BID 12/15/18 12/15/18 History Allergies Allergy/AdvReac Type Severity Reaction Status Date / Time codeine Allergy Rash/Hives Verified 12/15/18 19:19 hydrocodone bitartrate Allergy Nausea & Verified 12/15/18 19:19 [From Vicodin] Vomiting steroids Allergy Rapid Uncoded 12/15/18 18:08 Heart Rate Physical Examination - Vital Signs Vital Signs: Vital Signs Temp Pulse Pulse Resp BP BP BP 12/16/18 12:19 98.1 F 59 L 16 122/71 12/16/18 12:00 70 18 12/16/18 08:00 70 18 12/16/18 07:40 97.7 F 70 18 118/74 12/16/18 03:55 98.3 F 67 16 128/70 12/15/18 23:51 98.1 F 63 16 112/67 12/15/18 21:42 98.1 F 59 L 16 130/79 12/15/18 21:23 65 13 130/68 12/15/18 21:14 12/15/18 19:50 97.7 F 63 12 132/69 12/15/18 18:03 97.7 F 65 16 146/72 Pulse Ox 12/16/18 12:19 95 12/16/18 12:00 12/16/18 08:00 12/16/18 07:40 95 07/25/19 03:55 97 12/15/18 23:51 98 12/15/18 21:42 97 12/15/18 21:23 97 12/15/18 21:14 97 12/15/18 19:50 97 12/15/18 18:03 100 Intake and Output 12/15/18 12/16/18 12/16/18 22:59 06:59 14:59 Intake Total 600 Balance 600 Intake: Intake, IV Titration 600 Amount Sodium Chloride 0.9% 1, 600 000 ml @ 75 mls/hr IV . [id number] JUSTIN Rx#:[id number] Other: # Voids 4 2 3 Weight 63.503 kg Gen NAD Pleasant and cooperative HEENT NCAT Sclera without icterus O/P clear Neck Supple No carotid bruit Cor RRR no m/r/g Lungs CTAB Abd Soft NTND +BS Ext Warm to touch No edema Neuro MS A+Ox4 Normal fluency Able to follow all commands CN PERRL VFF no APD EOMI no nystagmus or LENNY No facial asymmetry Masseter's symmetric Hearing intact to normal voice bilaterally Speech not dysarthric Equal elevation of palate Tongue midline Sym shrug and SCM bilaterally Motor Normal bulk/tone No pronator or tremors Strength 5/5 sym throughout Sens Intact to LT x4 No neglect or extinction No Lhermitte's Coord No dysmetria on FTN bilaterally DTRs 2+/4 sym throughout Toes downgoing bilaterally No clonus at achilles Gait Deferred NIHSS 0 Results - Laboratory Findings CBC and BMP: 12/15/18 18:33 12/15/18 18:33 Abnormal Lab Findings: Abnormal Labs 12/15/18 18:33 BUN 28 H Glucose 106 H Assessment and Plan Assessment: Transient alteration of awareness and paresthesias, etiology unclear. Non-focal neuro exam. Plan: -Discussed at length neurological differential considerations based on patient's symptoms and potential next steps in diagnostic testing -She can follow up with outpatient neurology for neuroimaging and sleep deprived sleep/wake EEG -Stable for discharge from acute neuro standpoint. Please provide contact info of local outpatient neurologists for patient to establish care -d/w patient/family in detail. All questions answered. Thank you for this consultation. Please call with ?. Time with Patient: Greater than 30 (Time spent in direct patient care, greater than 50% of which was spent in [id number] counseling and coordination of care: 70 minutes)
[2018-12-16] MEDS ORDERED: HEPARIN SODIUM,PORCINE 5,000 UNIT/ML 1 ML VIAL SQ SCH (21:00)
[2018-12-16] MEDS ORDERED: FAMOTIDINE 20 MG/2 ML VIAL IV SCH (21:00)
--- NOTE | 2018-12-17 10:27 | ECHOF ---
Referral Reason: MEASUREMENTS -------- HEIGHT: 172.7 cm WEIGHT: 63.5 kg BP: 118/74 RVIDd: 2.4 cm (< 3.3) IVSd: 1.1 cm (0.6 - 1.1) LVIDd: 4.2 cm (3.9 - 5.3) LVPWd: 1.2 cm (0.6 - 1.1) IVSs: 1.5 cm LVIDs: 2.3 cm LVPWs: 1.4 cm LAESV Index (A-L): 20.69 ml/m Ao Diam: 2.3 cm (2.0 - 3.7) AV Cusp: 1.7 cm (1.5 - 2.6) LA Diam: 2.8 cm (2.7 - 3.8) MV EXCURSION: 15.488 mm (> 18.000) MV EF SLOPE: 99 mm/s (70 - 150) EPSS: 0.3 cm MV E Mansoor: 1.23 m/s MV DecT: 170 ms MV A Mansoor: 0.33 m/s MV E/A Ratio: 3.73 AV maxP.49 mmHg AV meanP.87 mmHg RAP: 5.00 mmHg RVSP: 29.25 mmHg FINDINGS -------- Sinus rhythm. This was a technically adequate study. There is borderline concentric left ventricular hypertrophy. Overall left ventricular systolic func tion is normal with, an EF between 55 - 60 %. Mitral Doppler inflow pattern suggests diastolic fill ing abnormality 15.57. The right ventricle is normal in size. Normal LA size by volume 22+/-6 ml/m2. The right atrial size is normal. Interatrial and interventricular septum intact. The aortic valve is trileaflet and appears structurally normal. There is no evidence of aortic regu rgitation. There is no evidence of aortic stenosis. Moderate mitral regurgitation is present. Mild tricuspid regurgitation present. There is no evidence of pulmonary hypertension. The right v entricular systolic pressure, as measured by Doppler, is 29.25mmHg. There is no pulmonic regurgitation present. The aortic root size is normal. The inferior vena cava is moderately dilated. There is a trivial pericardial effusion present. CONCLUSIONS -------- 1. Sinus rhythm. 2. This was a technically adequate study. 3. There is borderline concentric left ventricular hypertrophy. 4. Overall left ventricular systolic function is normal with, an EF between 55 - 60 %. 5. Mitral Doppler inflow pattern suggest diastolic filling abnormality 15.57. 6. The right ventricle is normal in size. 7. Normal LA size by volume 22+/-6 ml/m2. 8. The right atrial size is normal. 9. Interatrial and interventricular septum intact. 10. The aortic valve is trileaflet and appears structurally normal. 11. There is no evidence of aortic regurgitation. 12. There is no evidence of aortic stenosis. 13. Moderate mitral regurgitation is present. 14. Mild tricuspid regurgitation present. 15. There is no evidence of pulmonary hypertension. 16. The right ventricular systolic pressure, as measured by Doppler, is 29.25mmHg. 17. There is no pulmonic regurgitation present. 18. The aortic root size is normal. 19. The inferior vena cava is moderately dilated. 20. There is a trivial pericardial effusion present. LAUNDRY PRESS OPERATOR: Za Geiger RDCS
--- NOTE | 2018-12-21 20:28 | EM ---
EVENT MONITOR 24-HOUR DCG REPORT: Patient in her diary indicated mostly activity. She had one episode when she thought she felt a skipped heartbeat and one episode of lightheadedness. Predominantly sinus with a heart rate ranging from 51 to 97 beats per minute with average heart rate of 66 beats per minute. There were rare isolated PVCs noted. There was no evidence of any SVT, VT or any significant bradyarrhythmia. At the time patient complained of a skipped beat, she had one PVC on one occasion, but on other occasions when she complained of skipped beats, no other significant arrhythmia was noted. When she had lightheadedness, she was in a sinus rhythm at 68 beats per minute. There was no consistent correlation with her PVCs and feeling of skipped heartbeats. No significant arrhythmia was noted. FINAL IMPRESSION: Unremarkable 24-hour DCG with predominant sinus rhythm, rare PVCs, average heart rate of 66 beats per minute. When patient complained of skipped beats, there was inconsistent correlation with isolated PVCs. This is an unremarkable 24-hour DCG. MMODL / IJN: [id number] /
== END 2018-12-16 15:41 | disposition home or self-care (01) ==
LOC: EC 17:57 → 1SOBS 20:55
PROVIDERS: ADMIT Internal Medicine; ATTEND Internal Medicine
DX: R07.89 Other chest pain (principal); R20.2 Paresthesia of skin; R42 Dizziness and giddiness; R06.02 Shortness of breath; G89.29 Other chronic pain; M54.2 Cervicalgia; R40.4 Transient alteration of awareness; R20.0 Anesthesia of skin; R00.2 Palpitations; J32.9 Chronic sinusitis, unspecified; I48.92 Unspecified atrial flutter; I48.91 Unspecified atrial fibrillation; N39.3 Stress incontinence (female) (male); Z90.49 Acquired absence of other specified parts of digestive tract; Z88.8 Allergy status to other drugs, medicaments and biological substances; Z79.51 Long term (current) use of inhaled steroids; Z79.899 Other long term (current) drug therapy; Z88.5 Allergy status to narcotic agent; Z87.442 Personal history of urinary calculi; Z87.891 Personal history of nicotine dependence; I83.90 Asymptomatic varicose veins of unspecified lower extremity; Z81.8 Family history of other mental and behavioral disorders; Z82.49 Family history of ischemic heart disease and other diseases of the circulatory system; Z82.5 Family history of asthma and other chronic lower respiratory diseases
CPT/HCPCS: 96360; 99285; 36415; 94640; 93005; 93225; 93226; 93306; 85379; 80048; 84443; 83735; 84484 ×2; 85025; 71046; G0378 ×2

== ENCOUNTER 2018-12-22 12:59 | Emergency (ER) | payer OTHER ==
[2018-12-22 13:16] VITALS: RESP 16; TEMP 98.2
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
[2018-12-22 15:24] VITALS: BP 129/86
--- NOTE | 2018-12-22 16:00 | CT ---
EXAMINATION TYPE: CT brain wo con DATE OF EXAM: 12/22/2018 COMPARISON: 12/04/2011 HISTORY: 58-year-old female with bilateral arm and leg tingling and weakness with shortness of breath on exertion TECHNIQUE: Examination was done in axial plane without intravenous contrast. Coronal and sagittal r econstructions performed. CT DLP: 1099.4 mGycm Automated exposure control for dose reduction was used. FINDINGS: There is no evidence of acute intracranial hemorrhage, acute ischemic changes, mass, mass-effect, or extra-axial fluid collection. There is no effacement of cerebral sulci or basal subarachnoid cister ns. There is no hydrocephalus. There is no midline shift. Acuña-white matter distinction is preserv ed. Mild leftward nasal septal deviation. Paranasal sinuses and mastoid air cells well pneumatized. Orbit s and globes are intact. IMPRESSION: No acute intracranial abnormality seen.
[2018-12-22 16:52] VITALS: PULSE 67
[2018-12-23 14:06] LABS: Lyme IgG/IgM 0.07 Index; Lyme IgG/IgM Interp NEGATIVE (NEGATIVE)
== END 2018-12-22 16:52 | disposition home or self-care (01) ==
LOC: EC 12:59
DX: R20.2 Paresthesia of skin (principal); R06.02 Shortness of breath; R42 Dizziness and giddiness; R06.00 Dyspnea, unspecified; Z79.51 Long term (current) use of inhaled steroids; Z79.02 Long term (current) use of antithrombotics/antiplatelets; Z79.899 Other long term (current) drug therapy; Z88.5 Allergy status to narcotic agent; Z88.6 Allergy status to analgesic agent; Z88.8 Allergy status to other drugs, medicaments and biological substances; Z87.891 Personal history of nicotine dependence
CPT/HCPCS: 36415; 70450; 86618; 99285

== ENCOUNTER → 2018-12-28 | Outpatient (CLI) | payer OTHER ==
--- NOTE | 2018-12-28 14:40 | XR ---
EXAMINATION TYPE: XR cervical spine comp DATE OF EXAM: 12/28/2018 COMPARISON: NONE HISTORY: Pain TECHNIQUE: Four views are submitted. FINDINGS: The odontoid is intact. There are no compression deformities. The prevertebral soft tissue structur es are within normal limits. Diffuse osteopenia and loss of the normal cervical lordosis with multil evel moderate degenerative disc disease with the most marked findings at C4-5 and C5-C6. IMPRESSION: 1. Loss the normal cervical lordosis with multilevel degenerative disc disease and most marked findin gs at C4-5 and C5-C6. Follow-up MRI recommended to assess for canal stenosis.
== END | disposition home or self-care (01) ==
LOC: RADXRYALE 14:20
PROVIDERS: ATTEND Physician Assistant Medical
DX: M50.321 Other cervical disc degeneration at C4-C5 level (principal)
CPT/HCPCS: 72050

== ENCOUNTER → 2019-01-27 | Outpatient (CLI) | payer OTHER ==
--- NOTE | 2019-01-28 11:18 | CTL ---
EXAMINATION TYPE: CT Low Dose Lung DATE OF EXAM ORDERED: 01/28/2019 HISTORY: 59-year-old female Personal hx tobacco use 40 years. Lung cancer screening CT DLP: 51.[address] CTDI: 1.30 mGy Automated exposure control for dose reduction was used. SCREENING VISIT: Baseline COMPARISON: Old exam 10/11/2013 TECHNIQUE: Low dose computed tomography scan was performed through the chest at 1 mm thick sections a nd reconstructed images in the coronal and sagittal plane. Additional coronal MIP reconstruction perf ormed. CT DIAGNOSTIC QUALITY: Satisfactory FINDINGS: Heart normal size without pericardial effusion. Aorta normal caliber with minimal arch calcifications and conventional arch vessel branching anatomy. Scattered nonenlarged mediastinal lymph nodes are unchanged. No thoracic lymphadenopathy by CT size c riteria. Lungs show mild diffuse bronchial wall thickening and mild emphysema. Biapical pleural parenchymal sc arring. 4 mm nodule right middle lobe may have been present on prior exam. Axial image 184. Tiny calcified granuloma inferior lingula with some adjacent strandy atelectasis, minimal peripheral bronchiectasis, and some endobronchial plugging which seems to have been present previously. Additional calcified granuloma left upper lobe axial image 87. Some subtle tree-in-bud nodularity peripheral right midlung with nodularity measuring up to 4 mm appe ars to have been present on prior. No consolidation or pleural effusion. Visualized upper abdomen shows cholecystectomy clips. Small nonobstructive 2 to 3 mm calculi are sugg ested in both kidneys. Bones: Mild endplate spondylosis lower thoracic spine. IMPRESSION: 1. Lung RADS 2 - benign; prior granulomatous disease as well as a couple 4 mm pulmonary nodules at [facility] (formerly [facility]). 2. COPD with mild emphysema. 3. Subtle tree-in-bud nodularity peripheral right midlung stable back to 2013 suggests an area of chr onic endobronchial inflammation or small airways mucoid impaction. RECOMMENDATION: 1. Follow-up annual low-dose lung cancer screening CT. 2. Smoking cessation. FOLLOW UP CT CHEST RECOMMENDATION: [address] LUNG RAD: Lung-Rad 2 Benign Appearance or Behavior
== END | disposition home or self-care (01) ==
LOC: RADCTMAIN 17:00
PROVIDERS: ATTEND Internal Medicine
DX: Z12.2 Encounter for screening for malignant neoplasm of respiratory organs (principal); J43.9 Emphysema, unspecified; J84.10 Pulmonary fibrosis, unspecified; Z87.891 Personal history of nicotine dependence

== ENCOUNTER → 2019-11-14 | Outpatient (CLI) | payer OTHER ==
--- NOTE | 2019-11-14 12:16 | XR ---
EXAMINATION TYPE: XR Hip Complete LT DATE OF EXAM: 11/14/2019 COMPARISON: NONE HISTORY: Pain TECHNIQUE: 2 views submitted FINDINGS: There is no evidence of erosive change or acute fracture. Diffuse osteopenia and degenerative change lower lumbar spine. There is changes of arthropathy or sac roiliitis of the left SI joint. Moderate concentric narrowing of the hip joint with hypertrophic melissa ges of the acetabulum. IMPRESSION: 1. No evidence of acute fracture or dislocation. 2. Arthropathy of the left hip correlate for femoral acetabular impingement. 3. Left sacroiliitis. 4. osteopenia
== END | disposition home or self-care (01) ==
LOC: RADXRYALE 11:59
PROVIDERS: ATTEND Physician Assistant Medical
DX: M12.852 Other specific arthropathies, not elsewhere classified, left hip (principal); M46.1 Sacroiliitis, not elsewhere classified; M85.80 Other specified disorders of bone density and structure, unspecified site; W01.0XXA Fall on same level from slipping, tripping and stumbling without subsequent striking against object, initial encounter
CPT/HCPCS: 73502

== ENCOUNTER 2020-01-04 09:46 | Emergency (ER) | payer OTHER ==
[2020-01-04 09:50] VITALS: TEMP 97.5
[2020-01-04] MEDS ORDERED: SODIUM CHLORIDE 0.9% 1,000 ML IV STA (10:06)
[2020-01-04] MEDS ORDERED: KETOROLAC 15 MG/ML 1 ML VIAL IVP STA (10:06)
--- NOTE | 2020-01-04 10:07 | ED ---
General Adult HPI - General Chief complaint: Back Pain/Injury Stated complaint: kidney stones Time Seen by Provider: 01/04/20 09:51 Source: patient Mode of arrival: ambulatory Limitations: no limitations - History of Present Illness Initial comments: Dictation was produced using [employer] dictation software. please excuse any grammatical, word or spelling errors. This patient was cared for during a federal and state declared state of emergency secondary to Covid 19 Chief Complaint: 59-year-old female presents with left-sided flank pain. History of Present Illness: 59-year-old female she has history of kidney stones. She states that she has colicky pain to her left flank that radiates to her left groin. Patient states his been several years since she's had a kidney stone. Patient also complained of some nausea and vomiting. Today she developed a mild headache. She has a history of headaches. She states the headache is full cranial. Denies any neurologic deficits. No fever chills night sweats. Denies any abdominal pain. The ROS documented in this emergency department record has been reviewed and confirmed by me. Those systems with pertinent positive or negative responses have been documented in the HPI. All other systems are other negative and/or noncontributory. PHYSICAL EXAM: General Impression: Alert and oriented x3, not in acute distress HEENT: Normocephalic atraumatic, extra-ocular movements intact, pupils equal and reactive to light bilaterally, mucous membranes moist. Cardiovascular: Heart regular rate and rhythm Chest: Able to complete full sentences, no retractions, no tachypnea Abdomen: abdomen soft, non-tender, non-distended, no organomegaly Musculoskeletal: Pulses present and equal in all extremities, no peripheral edema, positive CVA tenderness to the left Motor: no focal deficits noted Neurological: CN II-XII grossly intact, no focal motor or sensory deficits noted Skin: Intact with no visualized rashes Psych: Normal affect and mood ED course: 59-year-old female with clinical presentation consistent with nephrolithiasis. Vital signs upon arrival are within acceptable limits. Laboratory evaluation obtained. Mild leukocytosis of 12.0 likely secondary to stress. Metabolic panel is negative. Urinalysis shows 19 red blood cells and 16 white blood cells computed tomography scan of the abdomen and pelvis shows findings of recently passed ureteral calculus and hepatic steatosis. Findings of the CT were discussed with patient. Patient reevaluated at bedside and found to be stable medical condition she reports significant improvement of her symptoms.. Patient went for discharge she is advised to follow-up with her primary care physician. - Related Data Home Medications Medication Instructions Recorded Confirmed Zolpidem Tartrate [Ambien Cr] 12.5 mg PO HS 11/04/16 01/04/20 Ascorbic Acid [Vitamin C] 1,000 mg PO DAILY 12/15/18 01/04/20 Allergies Allergy/AdvReac Type Severity Reaction Status Date / Time codeine Allergy Rash/Hives Verified 01/04/20 11:09 hydrocodone bitartrate AdvReac Nausea & Verified 01/04/20 11:09 [From Vicodin] Vomiting steroids AdvReac Rapid Uncoded 01/04/20 11:09 Heart Rate Review of Systems ROS Statement: Those systems with pertinent positive or pertinent negative responses have been documented in the HPI. ROS Other: All systems not noted in ROS Statement are negative. Past Medical History Past Medical History: Atrial Flutter Additional Past Medical History / Comment(s): STRESS INCONTINENCE ,KIDNEY STONES, IRREGULAR HEARTBEAT,CLAUSTROPHOBIA History of Any Multi-Drug Resistant Organisms: None Reported Past Surgical History: Cholecystectomy Additional Past Surgical History / Comment(s): WISDOM TEETH Past Anesthesia/Blood Transfusion Reactions: No Reported Reaction Past Psychological History: No Psychological Hx Reported Smoking Status: Former smoker Past Alcohol Use History: Occasional Past Drug Use History: None Reported - Past Family History Mother Family Medical History: Dementia Father Family Medical History: COPD Additional Family Medical History / Comment(s): 4 vessel CABG, 6 years ago General Exam Limitations: no limitations Course Vital Signs 01/04/20 09:47 Temperature 97.5 F L Pulse Rate 77 Respiratory 16 Rate Blood Pressure 120/76 O2 Sat by Pulse 98 Oximetry Medical Decision Making - Lab Data Result diagrams: 01/04/20 10:11 01/04/20 10:11 Lab Results 01/04/20 01/04/20 01/04/20 Range/Units 10:11 10:11 10:11 WBC 12.0 H (3.8-10.6) k/uL RBC 5.02 (3.80-5.40) m/uL Hgb 15.3 (11.4-16.0) gm/dL Hct 46.5 H (34.0-46.0) % MCV 92.6 (80.0-100.0) fL MCH 30.4 (25.0-35.0) pg MCHC 32.8 (31.0-37.0) g/dL RDW 12.0 (11.5-15.5) % Plt Count 294 (150-450) k/uL Neutrophils % 79 % Lymphocytes % 13 % Monocytes % 5 % Eosinophils % 2 % Basophils % 0 % Neutrophils # 9.5 H (1.3-7.7) k/uL Lymphocytes # 1.6 (1.0-4.8) k/uL Monocytes # 0.6 (0-1.0) k/uL Eosinophils # 0.2 (0-0.7) k/uL Basophils # 0.0 (0-0.2) k/uL Sodium 138 (137-145) mmol/L Potassium 4.4 (3.5-5.1) mmol/L Chloride 104 (98-107) mmol/L Carbon Dioxide 24 (22-30) mmol/L Anion Gap 10 mmol/L BUN 23 H (7-17) mg/dL Creatinine 1.25 H (0.52-1.04) mg/dL Est GFR (CKD-EPI)AfAm 55 (>60 ml/min/1.73 sqM) Est GFR (CKD-EPI)NonAf 47 (>60 ml/min/1.73 sqM) Glucose 142 H (74-99) mg/dL Calcium 9.7 (8.4-10.2) mg/dL Urine Color Yellow Urine Appearance Clear (Clear) Urine pH 5.0 (5.0-8.0) Ur Specific [place] 1.014 (1.001-1.035) Urine Protein Trace H (Negative) Urine Glucose (UA) Negative (Negative) Urine Ketones 1+ H (Negative) Urine Blood Small H (Negative) Urine Nitrite Negative (Negative) Urine Bilirubin Negative (Negative) Urine Urobilinogen <2.0 (<2.0) mg/dL Ur Leukocyte Esterase Negative (Negative) Urine RBC 19 H (0-5) /hpf Urine WBC 16 H (0-5) /hpf Ur Squamous Epith Cells 2 (0-4) /hpf Urine Bacteria Occasional H (None) /hpf Hyaline Casts 15 H (0-2) /lpf WBC Casts 3 (0) /lpf Urine Mucus Rare H (None) /hpf Disposition Clinical Impression: Kidney stone Disposition: HOME SELF-CARE Condition: Good Instructions (If sedation given, give patient instructions): Kidney Stones (ED) Is patient prescribed a controlled substance at d/c from ED?: No Referrals: Bryanna Gonzalez, PAC [Primary Care Provider] - 1-2 days Time of Disposition: 11:12
[2020-01-04] MEDS ORDERED: MORPHINE SULFATE 4 MG/ML SYRINGE IVP STA (10:22)
[2020-01-04] MEDS ORDERED: ONDANSETRON 4 MG/2 ML VIAL IVP STA (10:23)
[2020-01-04 10:28] LABS: Basophils % (A) 0 %; Eosinophils # (A) 0.2 k/uL (0-0.7); Eosinophils % (A) 2 %; HCT 46.5 % (34.0-46.0); HGB 15.3 gm/dL (11.4-16.0); Lymphocytes # (A) 1.6 k/uL (1.0-4.8); Lymphocytes % (A) 13 %; MCH 30.4 pg (25.0-35.0); MCHC 32.8 g/dL (31.0-37.0); MCV 92.6 fL (80.0-100.0); Mean Platelet Volume 7.6; Monocytes # (A) 0.6 k/uL (0-1.0); Monocytes % (A) 5 %; Neutrophils # (A) 9.5 k/uL (1.3-7.7); Neutrophils % (A) 79 %; Platelet Count 294 k/uL (150-450); RBC 5.02 m/uL (3.80-5.40)
[2020-01-04 10:44] LABS: Calcium 9.7 mg/dL (8.4-10.2); Potassium 4.4 mmol/L (3.5-5.1)
[2020-01-04 10:51] LABS: Appearance,Urine Clear (Clear); Bacteria,Urine Occasional /hpf; Bilirubin,Urine Negative (Negative); Blood,Urine Small (Negative); Color,Urine Yellow; Glucose,Urine (UA) Negative (Negative); Hyaline Casts,Urine 15 /lpf (0-2); Ketones,Urine 1+ (Negative); Leukocyte Esterase,Urine Negative (Negative); Mucus,Urine Rare /hpf; Nitrite,Urine Negative (Negative); Protein,Urine Trace (Negative); RBC,Urine 19 /hpf (0-5); Specific Gravity,Urine 1.014 (1.001-1.035); Squamous Epithelial Cell,Urine 2 /hpf (0-4); Urobilinogen,Urine <2.0 mg/dL (<2.0); WBC,Urine 16 /hpf (0-5); White Blood Cell Casts,Urine 3 /lpf (0)
--- NOTE | 2020-01-04 11:01 | CT ---
EXAMINATION TYPE: CT abdomen pelvis wo con DATE OF EXAM: 01/04/2020 COMPARISON: Prior CT 01/08/2015 HISTORY: Left sided pain with nausea and vomiting CT DLP: 833.6 mGycm Automated exposure control for dose reduction was used. TECHNIQUE: Helical acquisition of images from the lung bases through the pelvis. FINDINGS: Lack of intravenous contrast could compromise sensitivity. LUNG BASES: No significant abnormality is appreciated, some mild interstitial changes are present. AORTA: No significant abnormality is appreciataed. LIVER/GB: Liver shows low attenuation likely due to hepatic steatosis, liver appears enlarged, patien t is post cholecystectomy PANCREAS: No significant abnormality is seen. SPLEEN: No significant abnormality is seen. ADRENALS: No significant abnormality is seen. KIDNEYS: Right renal calculus is present in the upper pole measuring 8 mm x 4 mm. Left kidney shows p erinephric stranding. Punctate calcification is present at the lower pole. There is mild left-sided h ydronephrosis. Left-sided hydroureter is present. REPRODUCTIVE ORGANS: Not seen URINARY BLADDER: There is a calcification in the urinary bladder measuring 4 to 5 mm. BOWEL: Diverticular changes present within the sigmoid colon. Appendix is normal. FREE AIR: No Free Air is visible. ASCITES: None visible. PELVIC ADENOPATHY: None visualized. RETROPERITONEAL ADENOPATHY: No Retroperitoneal Adenopathy visible. OSSEOUS STRUCTURES: Degenerative disc changes are present in the lower lumbar spine. IMPRESSION: FINDINGS MAY REPRESENT RECENTLY PASSED URETERAL CALCULUS INTO THE URINARY BLADDER. HEPATIC STEATOSIS.
[2020-01-04] MEDS ORDERED: MAG HYDROX/AL HYDROX/SIMETH 30 ML, HYOSCYAMINE ELIXIR 10 ML, LIDOCAINE VISCOUS 2% 10 ML PO STA ×3 (11:23)
[2020-01-04 11:40] VITALS: BP 132/76; PULSE 75; RESP 18
== END 2020-01-04 12:16 | disposition home or self-care (01) ==
LOC: EC 09:46
DX: N20.0 Calculus of kidney (principal); Z79.899 Other long term (current) drug therapy; Z88.5 Allergy status to narcotic agent; Z88.6 Allergy status to analgesic agent; Z88.8 Allergy status to other drugs, medicaments and biological substances; Z87.891 Personal history of nicotine dependence; Z90.49 Acquired absence of other specified parts of digestive tract
CPT/HCPCS: 36415; 80048; 85025; 81001; 87086; 74176; 99284; 96374; 96375 ×2; 96361; J2270; J2405; J1885

== ENCOUNTER → 2020-03-15 | Outpatient (CLI) | payer OTHER ==
--- NOTE | 2020-03-15 20:43 | CT ---
EXAMINATION TYPE: CT abdomen pelvis wo con DATE OF EXAM: 03/15/2020 COMPARISON: CT 01/04/2020 HISTORY: Low back pain after fall x5 months ago. History of renal stones. N20.0, N30.01 CT DLP: 761.5 mGycm Automated exposure control for dose reduction was used. TECHNIQUE: Helical acquisition of images from the lung bases through the pelvis. Patient received or al contrast only. FINDINGS: Lack of intravenous contrast could compromise sensitivity. Umbilical hernia contains fat. LUNG BASES: No significant abnormality is appreciated. AORTA: No significant abnormality is appreciataed. LIVER/GB: Liver shows low attenuation possibly due to hepatic steatosis, patient is post cholecystect marcie. PANCREAS: No significant abnormality is seen. SPLEEN: No significant abnormality is seen. ADRENALS: No significant interval change is seen. KIDNEYS: Punctate lower pole calcification present on the left, the perinephric stranding has resolve d, no hydronephrosis bilaterally. Calcification in the upper pole the right kidney is stable.. REPRODUCTIVE ORGANS: Not seen. URINARY BLADDER: No significant abnormality is seen. BOWEL: Diverticular changes extensive within the sigmoid colon. FREE AIR: No Free Air is visible. ASCITES: None visible. PELVIC ADENOPATHY: None visualized. RETROPERITONEAL ADENOPATHY: No Retroperitoneal Adenopathy visible. OSSEOUS STRUCTURES: Degenerative disc changes are present in the visualized spine. There is mild spi nal curvature. IMPRESSION: HEPATIC STEATOSIS. BILATERAL NEPHROLITHIASIS. DIVERTICULOSIS. POSTOP CHANGES.
== END | disposition home or self-care (01) ==
LOC: RADCTMAIN 15:53
PROVIDERS: ATTEND Family Medicine
DX: K76.0 Fatty (change of) liver, not elsewhere classified (principal); N20.0 Calculus of kidney; K57.30 Diverticulosis of large intestine without perforation or abscess without bleeding; Z98.890 Other specified postprocedural states
CPT/HCPCS: 74176

== ENCOUNTER → 2021-01-11 | Outpatient (CLI) | payer BC ==
[2021-01-11 12:44] LABS: Basophils % (A) 0 %; Eosinophils # (A) 0.3 k/uL (0-0.7); Eosinophils % (A) 3 %; HCT 43.9 % (34.0-46.0); HGB 14.4 gm/dL (11.4-16.0); Lymphocytes # (A) 2.2 k/uL (1.0-4.8); Lymphocytes % (A) 22 %; MCH 32.1 pg (25.0-35.0); MCHC 32.9 g/dL (31.0-37.0); MCV 97.5 fL (80.0-100.0); Mean Platelet Volume 8.3; Monocytes # (A) 0.6 k/uL (0-1.0); Monocytes % (A) 6 %; Neutrophils # (A) 6.5 k/uL (1.3-7.7); Neutrophils % (A) 66 %; Platelet Count 265 k/uL (150-450); RDW 12.9 % (11.5-15.5); WBC 9.9 k/uL (3.8-10.6)
[2021-01-11 12:56] LABS: Calcium 9.6 mg/dL (8.4-10.2)
[2021-01-11 13:03] LABS: Appearance,Urine Cloudy (Clear); Bacteria,Urine Rare /hpf; Bilirubin,Urine Negative (Negative); Blood,Urine Negative (Negative); Color,Urine Yellow; Glucose,Urine (UA) Negative (Negative); Hyaline Casts,Urine 3 /lpf (0-2); Ketones,Urine Negative (Negative); Leukocyte Esterase,Urine Large (Negative); Mucus,Urine Rare /hpf; Nitrite,Urine Negative (Negative); Protein,Urine Negative (Negative); RBC,Urine 7 /hpf (0-5); Specific Gravity,Urine 1.013 (1.001-1.035); Squamous Epithelial Cell,Urine 3 /hpf (0-4); Urobilinogen,Urine <2.0 mg/dL (<2.0); WBC,Urine 60 /hpf (0-5)
== END | disposition home or self-care (01) ==
LOC: LABPAT 11:31
PROVIDERS: ATTEND Urology
DX: Z01.812 Encounter for preprocedural laboratory examination (principal); N20.0 Calculus of kidney; N39.0 Urinary tract infection, site not specified
CPT/HCPCS: 36415; 80048; 81001; 85025; 87077; 87086; 87186

== ENCOUNTER 2021-01-17 12:12 | Day surgery (SDC) | payer BC ==
[2021-01-15 13:15] VITALS: BMI 31.1
--- NOTE | 2021-01-17 11:41 | P.HPIHPCON ---
History of Present Illness H&P Date: 01/17/21 Chief Complaint: Right renal stone This is a 61-year-old female with history of a 5 mm right-sided upper pole stone, she symptomatically from her stone. Option of ESWL and ureteroscopy was discussed with her. She agreed to proceed with right-sided ureteroscopy. Discussed the risk which includes but not limited to bleeding, infection, injury to the ureter. Discussed with her potential of persistent pain even with stone removal, given that it's a nonobstructing stone. She understood all the risk and agreed to proceed with right-sided ureteroscopy, holmium laser lithotripsy, stone basketing and stent insertion Consent for Procedure: I have explained the operation/procedure to the patient, including the risks, benefits, side effects, alternative therapies (including not receiving the proposed treatment or service), the likelihood of the patient achieving his/her goals, and potential recuperation problems for the procedure/sedation/analgesia, as well as any blood products, if indicated. I also explained to the patient the risks, benefits and side effects of the alternatives, as well as the risks related to not receiving the proposed procedure, care, treatment, or services. Past Medical History Past Medical History: Atrial Flutter Additional Past Medical History / Comment(s): STRESS INCONTINENCE, current KIDNEY STONES, CLAUSTROPHOBIA, neuropathy nikkie extremeties. current UTI rx of antibiotics History of Any Multi-Drug Resistant Organisms: None Reported Past Surgical History: Cholecystectomy, Hysterectomy Additional Past Surgical History / Comment(s): WISDOM TEETH Past Anesthesia/Blood Transfusion Reactions: No Reported Reaction Smoking Status: Current every day smoker - Past Family History Mother Family Medical History: Dementia Father Family Medical History: COPD Additional Family Medical History / Comment(s): 4 vessel CABG, 6 years ago Medications and Allergies Home Medications Medication Instructions Recorded Confirmed Type Zolpidem Tartrate [Ambien Cr] 12.5 mg PO HS 11/04/16 01/15/21 History Ascorbic Acid [Vitamin C] 1,000 mg PO DAILY 12/15/18 01/15/21 History DULoxetine HCL [Cymbalta] 30 mg PO BID 01/04/20 01/15/21 History Ibuprofen [Motrin] 600 mg PO Q8HR PRN 01/04/20 01/15/21 History Metoprolol Tartrate 25 mg PO BID 01/04/20 01/15/21 History Multivit with Calcium,Iron,Min 1 tab PO DAILY 01/04/20 01/15/21 History [Women's Multivitamin] Gabapentin [Neurontin] 300 mg PO TID PRN 07/13/20 01/15/21 History Budesonide/Glycopyr/Formoterol 2 puff INHALATION BID 01/15/21 01/15/21 History [Breztri Aerosphere Inhaler] Cephalexin [Keflex] 500 mg PO Q8HR 01/15/21 01/15/21 History Allergies Allergy/AdvReac Type Severity Reaction Status Date / Time codeine Allergy Rash/Hives Verified 01/15/21 13:05 hydrocodone bitartrate AdvReac Nausea & Verified 01/15/21 13:05 [From Vicodin] Vomiting steroids AdvReac Rapid Uncoded 01/15/21 13:05 Heart Rate Surgical - Exam - General no distress, moderate pain - Eyes PERRL, normal ocular movement - ENT normal nares, normal mucosa - Respiratory normal expansion, normal respiratory effort - Abdomen Abdomen: soft, non tender - Psychiatric oriented to time, oriented to person, oriented to place
[~2021-01-17 12:12] MED LIST changes: -DEXAMETHASONE SOD PHOSPHATE 10 MG/ML 1 ML VIAL IV ONE; +LACTATED RINGERS 1,000 ML IV SCH; -LIDOCAINE 1% 20 ML VIAL (10MG/ML) FOR IV START INTRADERMA PRN; -MIDAZOLAM 2 MG/2 ML VIAL IV PRN; -SCOPOLAMINE 1.5MG/72HR PATCH TRANSDERM ONE; -ceFAZolin 2 GM in SODIUM CHLORIDE 0.9% 100 ML IVPB ONE
--- NOTE | 2021-01-17 12:39 | XR ---
KUB HISTORY: Kidney stones Frontal KUB and [address] scan 03/15/2020 Surgical clips are present in the right upper quadrant. Bowel gas may obscure underlying detail. No e vident bowel obstruction or pneumoperitoneum. Degenerative disc changes noted in the visualized spine . Possible phlebolith is present in the left hemipelvis. The right-sided nephrolithiasis noted on kali or CT is not well seen. Atherosclerotic vascular calcifications noted incidentally. IMPRESSION: Indeterminate pelvic calcification. Degenerative disc disease and postop changes.
[2021-01-17 12:43] VITALS: RESP 16
[2021-01-17] MEDS ORDERED: ONDANSETRON 4 MG/2 ML VIAL IVP ONE (12:50)
[2021-01-17] MEDS ORDERED: SUCCINYLCHOLINE CHLORIDE VIAL 200 MG/10 ML VIAL IV ONE (15:00)
[2021-01-17] MEDS ORDERED: PROPOFOL 10 MG/ML 20 ML VIAL IV ONE (15:00)
[2021-01-17] MEDS ORDERED: fentaNYL (PF) 50 MCG/ML 2 ML AMP ONE (15:00)
[2021-01-17] MEDS ORDERED: LIDOCAINE 1% INJ 10MG/ML (20 ML MDV) ONE (15:00)
[2021-01-17] MEDS ORDERED: MIDAZOLAM 2 MG/2 ML VIAL ONE (15:00)
--- NOTE | 2021-01-17 16:09 | P.OP ---
Date of Procedure: 01/17/21 Preoperative Diagnosis: Right renal calculi Postoperative Diagnosis: Same Procedure(s) Performed: Cystoscopy, right ureteroscopy, holmium laser lithotripsy, stone basketing and stent insertion Implants: 4.8-Greek by 26 cm stent in the right ureter left on a string Anesthesia: RANULFO Surgeon: Jered Dinero Estimated Blood Loss (ml): 5 Pathology: other (right renal stone) Condition: stable Disposition: PACU Indications for Procedure: This is a 61-year-old female with history of a 5 mm right-sided upper pole stone, she symptomatically from her stone. Option of ESWL and ureteroscopy was discussed with her. She agreed to proceed with right-sided ureteroscopy. Discussed the risk which includes but not limited to bleeding, infection, injury to the ureter. Discussed with her potential of persistent pain even with stone removal, given that it's a nonobstructing stone. She understood all the risk and agreed to proceed with right-sided ureteroscopy, holmium laser lithotripsy, stone basketing and stent insertion Operative Findings: Stone within the right upper pole Description of Procedure: Patient was brought to the operating room, general anesthesia was induced. She was prepped and draped in sterile fashion and placed in a dorsal lithotomy position. A cystoscopy fitted with a 21-Greek sheath was inserted per urethra, cystoscopy was performed which showed no abnormality within the bladder. Attention was then carried to the right ureteral orifice which was intubated with a sensor wire. The sensor wire was advanced into the renal pelvis. Next a 1113 Greek access sheath was passed over the wire under fluoroscopy into the proximal ureter. Next a flexible ureteroscope was advanced through the access sheath, renoscopy was performed which showed a large stone within the upper pole. Using the holmium laser the stone was fragmented into small fragments, sizable fragments were removed using the stone basket. Repeat renoscopy showed no evidence of injury to the kidney or any renal stones. Next pullback ureteroscopy was performed which showed no ureteral stone or injury to ureter. As the ureteroscope was withdrawn a sensor wire was advanced through. Next a ureteral stent was passed over the wire, the proximal curl was visualized on fluoroscopy and the distal curl was visualized using cystoscope. The stent was left on a string and taped to the patient thigh. The bladder was emptied at the end of the case. Patient tolerated the procedure well was taken to PACU in stable condition
[2021-01-17 16:20] VITALS: TEMP 96.8
[2021-01-17] MEDS: fentaNYL (PF) 50 MCG/ML 2 ML AMP IV PRN ×2 (16:29→16:41)
[2021-01-17] MEDS ORDERED: LACTATED RINGERS 1,000 ML IV ONE ×2 (16:30)
[2021-01-17] MEDS ORDERED: KETOROLAC 15 MG/ML 1 ML VIAL ONE (16:53)
[2021-01-17] MEDS ORDERED: KETOROLAC 15 MG/ML 1 ML VIAL IVP ONE (17:01)
--- NOTE | 2021-01-17 17:10 | FL ---
Fluoroscopy HISTORY: Kidney stone 7 seconds fluoroscopy time supplied to the referring clinician. 1 intraoperative C-arm images docume nt the procedure. See dictated report from urology.
[2021-01-17 17:43] VITALS: BP 103/69; PULSE 69
== END 2021-01-17 18:10 | disposition home or self-care (01) ==
LOC: OR 12:12
PROVIDERS: ATTEND Urology
DX: N20.0 Calculus of kidney (principal); J45.909 Unspecified asthma, uncomplicated; F17.200 Nicotine dependence, unspecified, uncomplicated; F32.9 Major depressive disorder, single episode, unspecified; K21.9 Gastro-esophageal reflux disease without esophagitis
CPT/HCPCS: 52356; 82365; 74420; 74018; C2625; C1769; J2250; J0330; J0690; J2405; J2001; J3010; J1885; J2704

== ENCOUNTER → 2021-02-22 | Outpatient (CLI) | payer BC ==
--- NOTE | 2021-02-22 16:39 | MR ---
EXAMINATION TYPE: MR lumbar spine wo con DATE OF EXAM: 02/22/2021 COMPARISON: None HISTORY: Spinal stenosis, degenerative disc disease, pain, numbness, tingling CONTRAST: 0 mL intravenous Gadavist. TECHNIQUE: Multiplanar, multisequence images of the lumbar spine were acquired. FINDINGS: Cord terminates at T12-L1 level. L5-S1: Disc space narrowing is present. No significant disc bulge or focal protrusion is evident. No spinal canal stenosis is present. Neural foramen have mild bilateral foraminal narrowing due to disc bulging. L4-L5: Mild symmetrical disc bulge has mild anterior thecal sac contact. No AP spinal canal stenosis present. Neural foramen are patent. L3-L4: Mild disc bulge is present. No spinal canal stenosis or neural foraminal stenosis L2-L3: Minimal disc bulge is present without spinal canal stenosis or neural foraminal stenosis L1-L2: No significant disc bulge or disc herniation. No spinal canal stenosis. No foraminal stenosi s. T12-L1: No significant disc bulge or disc herniation. No spinal canal stenosis. No foraminal stenos is. IMPRESSION: 1. Mild disc bulging L to 3 through L5-S1. This appears greatest at the L4-5 level with mild anterior thecal sac contact. No stenosis is present. 2. Mild foraminal narrowing bilaterally at L5-S1
== END | disposition home or self-care (01) ==
LOC: RADMRIMAIN 12:16
PROVIDERS: ATTEND Orthopaedic Surgery Orthopaedic Surgery of the Spine
DX: M51.27 Other intervertebral disc displacement, lumbosacral region (principal); M99.73 Connective tissue and disc stenosis of intervertebral foramina of lumbar region
CPT/HCPCS: 72148

== ENCOUNTER → 2021-04-03 | Outpatient (CLI) | payer BC ==
[~2021-04-03] MED LIST changes: +CASIRIVIMAB (REGN10933) (EUA) 600 MG, IMDEVIMAB (REGN10987) (EUA) 600 MG in SODIUM CHLO... IVPB ONE; -LACTATED RINGERS 1,000 ML IV SCH; -ONDANSETRON 4 MG/2 ML VIAL IVP ONE; +SODIUM CHLORIDE 0.9% 50 ML IVPB ONE; +SODIUM CHLORIDE 0.9% 500 ML 500 ML in EMPTY BAG 1 BAG IV PRN
[2021-04-03 11:37] VITALS: RESP 16
[2021-04-03 11:56] VITALS: BP 104/74; PULSE 74; TEMP 98.2
== END ==
LOC: PROCWHC3 09:57
PROVIDERS: ATTEND Family Medicine
DX: U07.1 COVID-19 (principal); E66.9 Obesity, unspecified; Z68.30 Body mass index [BMI] 30.0-30.9, adult; Z88.5 Allergy status to narcotic agent; Z88.8 Allergy status to other drugs, medicaments and biological substances; Z87.891 Personal history of nicotine dependence
CPT/HCPCS: 96360; Q0243; M0243; 96367

== ENCOUNTER → 2021-04-25 | Outpatient (CLI) | payer BC ==
--- NOTE | 2021-04-26 09:37 | XR ---
EXAMINATION TYPE: XR chest 2V DATE OF EXAM: 04/25/2021 COMPARISON: 12/15/2018 TECHNIQUE: PA and lateral views submitted. HISTORY: Shortness of breath FINDINGS: Heart size is stable. There is biapical pleural thickening but no pneumothorax or pleural effusion. S urgical clips in the upper abdomen seen and there is a curvature of the spine. Mild diffuse osteopeni a. IMPRESSION: 1. No acute process.
== END | disposition home or self-care (01) ==
LOC: RADXRYALE 16:05
PROVIDERS: ATTEND Physician Assistant Medical
DX: U07.1 COVID-19 (principal)
CPT/HCPCS: 71046

== ENCOUNTER → 2022-01-30 | Outpatient (CLI) | payer BC ==
--- NOTE | 2022-01-30 16:38 | XR ---
KUB HISTORY: Calculus of kidney Frontal KUB submitted on 2 images, prior exam unavailable for comparison Surgical clips are present in the right upper quadrant, suspect there are clips in the left hemipelvi s. Generative disc changes present visualized spine. Probable phleboliths present within the pelvis. Lung bases are clear. There is a spinal curvature. Bowel gas may obscure detail. Small linear metalli c densities at the level of the left renal hilum are indeterminate. IMPRESSION: Nonspecific findings, postop changes.
== END | disposition home or self-care (01) ==
LOC: RADXRMAIN 15:24
PROVIDERS: ATTEND Urology
DX: N20.0 Calculus of kidney (principal)
CPT/HCPCS: 74018

== ENCOUNTER → 2022-03-18 | Outpatient (CLI) | payer BC ==
--- NOTE | 2022-03-18 17:11 | XR ---
Cervical spine HISTORY: Neck pain 5 views the cervical spine correlated prior exam 12/28/2018 There is no significant interval change. Reversal the normal cervical lordosis is present. Loss of di sc height greatest at C5-6, C6-7 with associated spondylosis. Minimal anterolisthesis grade 1 C4-5. F acet arthropathy changes are present. Prevertebral soft tissues are normal. Foraminal encroachment is present on the right at C5-6 and C6-7. There may be a thoracic spondylosis. IMPRESSION: Degenerative disc disease, multilevel foraminal encroachment. Cervical MRI may be of bene fit. Facet arthropathy. Additional findings above.
--- NOTE | 2022-03-18 17:14 | XR ---
Lumbosacral spine HISTORY: Back pain 5 views lumbosacral spine, correlation to lumbar MRI dated 02/22/2021 Alignment is similar, lumbar vertebral bodies show preserved height and alignment. There is multileve l spondylosis. Loss of disc height is present at intervertebral levels, vacuum phenomenon present at L3-4, L4-5 and L5-S1. Sclerosis in the posterior elements is consistent with facet arthropathy. Bone mineralization is reduced. Atherosclerotic vascular calcifications are present in the abdominal aorta . No evident spondylolysis. Surgical clips are present in the right upper quadrant. There is a slight spinal curvature. IMPRESSION: Osteopenia, degenerative disc disease, facet arthropathy and spinal curvature
== END | disposition home or self-care (01) ==
LOC: RADXRYALE 15:37
PROVIDERS: ATTEND Physician Assistant Medical
DX: M50.323 Other cervical disc degeneration at C6-C7 level (principal); M48.02 Spinal stenosis, cervical region; M47.812 Spondylosis without myelopathy or radiculopathy, cervical region; M51.36 Other intervertebral disc degeneration, lumbar region; M47.816 Spondylosis without myelopathy or radiculopathy, lumbar region
CPT/HCPCS: 72050; 72110

== ENCOUNTER → 2023-06-22 | Outpatient (CLI) | payer MEDICARE ==
--- NOTE | 2023-06-23 11:08 | XR ---
EXAMINATION TYPE: XR hand complete 3 views LT DATE OF EXAM: 06/23/2023 Comparison: None Clinical History: 63-year-old female pain after [id number] FALL FROM BED Findings: Moderate to severe degenerative change at the first CMC joint with joint space narrowing, subchondral sclerosis, and prominent marginal spurring. Mild degenerative change at the triscaphe joint. There i s chronic volume loss at the tip of the index finger with smooth osteotomy margin. Some cystic change at the ulnar proximal aspect of the lunate bone. No acute fracture, subluxation, dislocation. Impression: 1. Chronic bone loss involving the tuft of the index finger, possibly related to prior surgical or tr aumatic amputation. Clinically correlate. 2. Moderate to severe OA at the basal joint of the thumb. 3. Some bony changes within the lunate bone may reflect ulnar impaction syndrome. Correlate for any c hronic ulnar-sided wrist pain.
== END | disposition home or self-care (01) ==
LOC: RADXRYALE 15:19
PROVIDERS: ATTEND Physician Assistant Medical
DX: M19.042 Primary osteoarthritis, left hand (principal); M25.842 Other specified joint disorders, left hand; W06.XXXA Fall from bed, initial encounter

== ENCOUNTER 2023-10-29 18:11 | Emergency (ER) | payer MEDICARE ==
[2023-10-29] MEDS: traMADol 50 MG TAB PO STA (18:59)
[2023-10-29 19:18] LABS: Basophils % (A) 0 %; Eosinophils # (A) 0.2 k/uL (0-0.7); Eosinophils % (A) 3 %; HCT 41.1 % (34.0-46.0); HGB 13.3 gm/dL (11.4-16.0); Lymphocytes # (A) 3.2 k/uL (1.0-4.8); Lymphocytes % (A) 39 %; MCH 31.2 pg (25.0-35.0); MCHC 32.4 g/dL (31.0-37.0); MCV 96.2 fL (80.0-100.0); Mean Platelet Volume 8.4; Monocytes # (A) 0.4 k/uL (0-1.0); Monocytes % (A) 5 %; Neutrophils # (A) 4.1 k/uL (1.3-7.7); Neutrophils % (A) 51 %; Platelet Count 252 k/uL (150-450); RBC 4.28 m/uL (3.80-5.40); RDW 12.7 % (11.5-15.5)
[2023-10-29 19:36] LABS: African American GFR (CKD) 77 (>60 ml/min/1.73 sqM); Anion Gap 5 mmol/L; Blood Urea Nitrogen 27 mg/dL (7-17); C Reactive Protein <0.5 mg/dL (<1.0); Calcium 9.5 mg/dL (8.4-10.2); Carbon Dioxide 24 mmol/L (22-30); Chloride 109 mmol/L (98-107); Glucose 92 mg/dL (74-99); Non-African American GFR(CKD) 67 (>60 ml/min/1.73 sqM); Potassium 4.4 mmol/L (3.5-5.1); Sodium 138 mmol/L (137-145)
--- NOTE | 2023-10-29 21:59 | ED ---
General Adult HPI - General Chief complaint: Neuro Symptoms/Deficit Stated complaint: pain in R eye and jaw area Time Seen by Provider: 10/29/23 18:20 Source: patient Mode of arrival: ambulatory Limitations: no limitations - History of Present Illness Initial comments: This patient is a 63-year-old woman who presents here to have evaluation of right-sided temporal headache. The patient states she had gone to see the clinic and was forwarded here. Patient states that her headache is started in the right temporal area and then it seemed to move down towards her right mandible but has now settled back into her right temporal area. She describes as aching. There is no pulsation to it. She is not having any vision change. No fever or chills. No cough or congestion. Onset/Timin -: days(s) Location: face Radiation: non-radiation Quality: aching Consistency: constant Improves with: none Worsens with: none Associated Symptoms: denies other symptoms Treatments Prior to Arrival: other ([id number]) - Related Data Home Medications Medication Instructions Recorded Confirmed Zolpidem Tartrate [Ambien Cr] 12.5 mg PO HS 11/04/16 04/03/21 Ascorbic Acid [Vitamin C] 1,000 mg PO DAILY 12/15/18 04/03/21 DULoxetine HCL [Cymbalta] 30 mg PO BID 01/04/20 04/03/21 Ibuprofen [Motrin] 600 mg PO Q8HR PRN 01/04/20 04/03/21 Metoprolol Tartrate 25 mg PO BID 01/04/20 04/03/21 Multivit with Calcium,Iron,Min 1 tab PO DAILY 01/04/20 04/03/21 [Women's Multivitamin] Gabapentin [Neurontin] 300 mg PO TID 07/13/20 04/03/21 Budesonide/Glycopyr/Formoterol 2 puff INHALATION BID 01/15/21 04/03/21 [Breztri Aerosphere Inhaler] Allergies Allergy/AdvReac Type Severity Reaction Status Date / Time codeine Allergy Rash/Hives Verified 01/17/21 12:48 hydrocodone bitartrate AdvReac Nausea & Verified 01/17/21 12:48 [From Vicodin] Vomiting steroids AdvReac Rapid Uncoded 01/17/21 12:48 Heart Rate Review of Systems ROS Statement: Those systems with pertinent positive or pertinent negative responses have been documented in the HPI. ROS Other: All systems not noted in ROS Statement are negative. Constitutional: Denies: fever, chills, weakness Eyes: Denies: vision change ENT: Denies: ear pain, congestion Respiratory: Denies: cough, dyspnea Cardiovascular: Denies: chest pain, syncope Gastrointestinal: Denies: abdominal pain, nausea, vomiting Neurological: Reports: headache. Denies: weakness, numbness, confusion Hematological/Lymphatic: Denies: easy bleeding Past Medical History Past Medical History: Atrial Flutter Additional Past Medical History / Comment(s): STRESS INCONTINENCE, current KIDNEY STONES, CLAUSTROPHOBIA, neuropathy nikkie extremeties History of Any Multi-Drug Resistant Organisms: None Reported Past Surgical History: Cholecystectomy, Hysterectomy Additional Past Surgical History / Comment(s): WISDOM TEETH. KIDNEY STONE REMOVAL Past Anesthesia/Blood Transfusion Reactions: No Reported Reaction Past Psychological History: Anxiety, Depression Smoking Status: Former smoker Past Alcohol Use History: Occasional Past Drug Use History: None Reported - Past Family History Mother Family Medical History: Dementia Father Family Medical History: COPD Additional Family Medical History / Comment(s): 4 vessel CABG, 6 years ago General Exam Limitations: no limitations General appearance: alert, in no apparent distress Head exam: Present: atraumatic, normocephalic Eye exam: Present: normal appearance, PERRL, EOMI. Absent: scleral icterus, conjunctival injection, nystagmus ENT exam: Present: normal oropharynx Neck exam: Present: normal inspection, full ROM. Absent: tenderness, meningismus Respiratory exam: Present: normal lung sounds bilaterally. Absent: respiratory distress, wheezes, rales, rhonchi, stridor Cardiovascular Exam: Present: regular rate, normal rhythm, normal heart sounds. Absent: systolic murmur, diastolic murmur, rubs, gallop Neurological exam: Present: alert, oriented X3, CN II-XII intact. Absent: motor sensory deficit Skin exam: Present: warm, dry, intact, normal color. Absent: rash Course Vital Signs 10/29/23 10/29/23 10/30/23 18:13 23:02 00:04 Temperature 97.6 F 97.8 F 97.6 F Pulse Rate 66 64 63 Respiratory 16 16 17 Rate Blood Pressure 127/72 119/66 120/69 O2 Sat by Pulse 99 96 94 L Oximetry Medical Decision Making - Medical Decision Making The patient had CT of the brain that I interpreted as negative for acute intracranial hemorrhage. Negative for acute bony injury The patient sent from clinic for evaluation of headache which is different from previous headaches and worst of life. For this reason she is sent for CT scan. Was pt. sent in by a medical professional or institution (, THO, DIRECTOR PLANS, urgent care, hospital, or shelter...) When possible be specific @ -Yes patient sent from clinic to have further evaluation related to her headache Did you speak to anyone other than the patient for history (EMS, parent, family, police, friend...)? What history was obtained from this source @ -[No] Did you review nursing and triage notes (agree or disagree)? Why? @ -[I reviewed and agree with nursing and triage notes] Were old charts reviewed (outside hosp., previous admission, EMS record, old EKG, old radiological studies, urgent care reports/EKG's, shelter records)? Report findings @ -[No old charts were reviewed] Differential Diagnosis (chest pain, altered mental status, abdominal pain women, abdominal pain men, vaginal bleeding, weakness, fever, dyspnea, syncope, headache, dizziness, GI bleed, back pain, seizure, CVA, palpatations, mental health, musculoskeletal)? @ -Differential Headache: Migraine, tension, cluster, carbon monoxide, central venous thrombosis, pension karma temporal arteritis, acute closure glaucoma, intercranial hemorrhage, mastoiditis, sinusitis, head injury, this is not meant to be an all-inclusive list. EKG interpreted by me (3pts min.). @ -[As above] X-rays interpreted by me (1pt min.). @ -[None done] CT interpreted by me (1pt min.). @ -[I interpreted as above U/S interpreted by me (1pt. min.). @ -[None done] What testing was considered but not performed or refused? (CT, X-rays, U/S, labs)? Why? @ -[None] What meds were considered but not given or refused? Why? @ -[None] Did you discuss the management of the patient with other professionals (professionals i.e. , THO, DIRECTOR [employer]ANS, lab, RT, psych nurse, social security benefits interviewer, corporate quality assurance manager, teacher, chief informatics officer, welfare case worker)? Give summary @ -[No] Was smoking cessation discussed for >3mins.? @ -[No] Was critical care preformed (if so, how long)? @ -[No] Were there social determinants of health that impacted care today? How? (Homelessness, low income, unemployed, alcoholism, drug addiction, transportation, low edu. Level, literacy, decrease access to med. care, usp, rehab)? @ -[No] Was there de-escalation of care discussed even if they declined (Discuss DNR or withdrawal of care, Hospice)? DNR status @ -[No] What co-morbidities impacted this encounter? (DM, HTN, Smoking, COPD, CAD, Cancer, CVA, ARF, Chemo, Hep., AIDS, mental health diagnosis, sleep apnea, morbid obesity)? @ -[None] Was patient admitted / discharged? Hospital course, mention meds given and route, prescriptions, significant lab abnormalities, going to OR and other pertinent info. @ -[Patient is 63-year-old woman here with headache. Her evaluation does not reveal tenderness and symptoms not strongly suggestive of temporal arteritis. The patient also has negative inflammatory marker. She is feeling better following treatment. Discussed appropriate further care and follow-up as well as return parameters Undiagnosed new problem with uncertain prognosis? @ -[No] Drug Therapy requiring intensive monitoring for toxicity (Heparin, Nitro, Insulin, Cardizem)? @ -[No] Were any procedures done? @ -[No] Diagnosis/symptom? @ -Acute headache Acute, or Chronic, or Acute on Chronic? @ -Acute Uncomplicated (without systemic symptoms) or Complicated (systemic symptoms)? @ -[Uncomplicated Side effects of treatment? @ -[No] Exacerbation, Progression, or Severe Exacerbation? @ -[No] Poses a threat to life or bodily function? How? (Chest pain, [place], [place], pneumonia, PE, COPD, DKA, ARF, appy, cholecystitis, CVA, Diverticulitis, Homicidal, Suicidal, threat to staff... and all critical care pts) @ -[No] - Lab Data Result diagrams: 10/29/23 19:03 10/29/23 19:03 Lab Results 10/29/23 10/29/23 Range/Units 19:03 19:03 WBC 8.0 (3.8-10.6) k/uL RBC 4.28 (3.80-5.40) m/uL Hgb 13.3 (11.4-16.0) gm/dL Hct 41.1 (34.0-46.0) % MCV 96.2 (80.0-100.0) fL MCH 31.2 (25.0-35.0) pg MCHC 32.4 (31.0-37.0) g/dL RDW 12.7 (11.5-15.5) % Plt Count 252 (150-450) k/uL MPV 8.4 Neutrophils % 51 % Lymphocytes % 39 % Monocytes % 5 % Eosinophils % 3 % Basophils % 0 % Neutrophils # 4.1 (1.3-7.7) k/uL Lymphocytes # 3.2 (1.0-4.8) k/uL Monocytes # 0.4 (0-1.0) k/uL Eosinophils # 0.2 (0-0.7) k/uL Basophils # 0.0 (0-0.2) k/uL ESR 9 (0-30) mm/Hr Sodium 138 (137-145) mmol/L Potassium 4.4 (3.5-5.1) mmol/L Chloride 109 H (98-107) mmol/L Carbon Dioxide 24 (22-30) mmol/L Anion Gap 5 mmol/L BUN 27 H (7-17) mg/dL Creatinine 0.92 (0.52-1.04) mg/dL Est GFR (CKD-EPI)AfAm 77 (>60 ml/min/1.73 sqM) Est GFR (CKD-EPI)NonAf 67 (>60 ml/min/1.73 sqM) Glucose 92 (74-99) mg/dL Calcium 9.5 (8.4-10.2) mg/dL C-Reactive Protein <0.5 (<1.0) mg/dL Disposition Clinical Impression: Headache Disposition: HOME SELF-CARE Condition: Good Instructions (If sedation given, give patient instructions): Acute Headache (ED) Is patient prescribed a controlled substance at d/c from ED?: No Referrals: Acosta Galaviz DO [Primary Care Provider] - 1-2 days
--- NOTE | 2023-10-29 22:35 | CT ---
EXAMINATION TYPE: CT brain wo con DATE OF EXAM: 10/29/2023 HISTORY: pt. from Urgent care after a head ache for 3 days. Home Tylenol not working. Radiating aroun d entire head and pain in eye and oriental orthodox. Hx of migraine but not like nothing she has had before. CT DLP: 1048.4 mGycm. Automated Exposure Control for Dose Reduction was Utilized. TECHNIQUE: CT scan of the head is performed without contrast. COMPARISON: CT brain December 22, 2018. FINDINGS: There is no acute intracranial hemorrhage or midline shift identified. Ventricles and sul ci are within normal limits in size for patient's age. Acuña-white matter differentiation is maintaine d. The calvarium is intact. The globes are intact and the visualized sinuses are clear. IMPRESSION: No acute intracranial hemorrhage or midline shift. Unremarkable study.
[2023-10-29] MEDS: KETOROLAC 15 MG/ML 1 ML VIAL IM STA (22:51)
[2023-10-29] MEDS: METOCLOPRAMIDE 5 MG/ML 2 ML VIAL IM STA (22:54)
[2023-10-30] MEDS: SUMAtriptan succinate 6 MG/0.5 ML VIAL SQ STA (00:01)
[2023-10-30 00:07] VITALS: BP 120/69; PULSE 63; RESP 17; TEMP 97.6
[2023-10-30 09:34] LABS: Erythrocyte Sedimentation Rate 9 mm/Hr (0-30)
== END 2023-10-30 00:04 | disposition home or self-care (01) ==
LOC: EC 18:11
DX: R51.9 Headache, unspecified (principal); Z87.891 Personal history of nicotine dependence; Z88.5 Allergy status to narcotic agent; Z88.8 Allergy status to other drugs, medicaments and biological substances; Z90.49 Acquired absence of other specified parts of digestive tract
CPT/HCPCS: 36415; 80048; 85652; 85025; 86140; 70450; 99284; 96372 ×3; J3030; J2765; J1885

== ENCOUNTER → 2023-11-23 | Outpatient (CLI) | payer OTHER ==
--- NOTE | 2023-11-23 16:09 | US ---
EXAMINATION TYPE: US carotid duplex BILAT DATE OF EXAM: 11/23/2023 COMPARISON: NONE CLINICAL INDICATION: Female, 63 years old with history of E78.2 mixed hyperlipdemia G3184 cog. impair R519; Abnormal labs TECHNIQUE: Carotid duplex ultrasound examination. Indirect Doppler criteria was utilized. FINDINGS: EXAM MEASUREMENTS: RIGHT: Peak Systolic Velocity (PSV) cm/sec ----- Right CCA: 79.0 ----- Right ICA: 68.8 ----- Right ECA: 67.1 ICA/CCA ratio: 0.9 RIGHT: End Diastole cm/sec ----- Right CCA: 17.5 ----- Right ICA: 22.6 ----- Right ECA: 8.6 LEFT: Peak Systolic Velocity (PSV) cm/sec ----- Left CCA: 72.3 ----- Left ICA: 96.9 ----- Left ECA: 106.0 ICA/CCA ratio: 1.3 LEFT: End Diastole cm/sec ----- Left CCA: 24.3 ----- Left ICA: 43.9 ----- Left ECA: 19.3 VERTEBRALS (direction of flow): Right Vertebral: Antegrade Left Vertebral: Antegrade Rhythm: Normal FERMENTER CHAMPAGNE NOTES: No significant stenosis seen IMPRESSION: Less than 50% stenosis of bilateral carotid bifurcation. Criteria for Assigning % of Stenosis / Diameter reduction (Estimation based on the indirect measurements of the internal carotid artery velocities (ICA PSV). 1. Normal (no stenosis)=ICA PSV < 125 cm/s: ratio < 2.0: ICA EDV<40 cm/s. 2. Less than 50% stenosis=ICA PSV < 125 cm/s: ratio < 2.0: ICA EDV<40 cm/s. 3. 50 to 69% stenosis=ICA PSV of 125 to 230 cm/s: ration 2.0 ? 4.0: ICA EDV 40-100 cm/s. 4. Greater than 70% stenosis to near occlusion= ICA PSV > 230 cm/s: ratio > 4.0: ICA EDV > 100 cm/s. 5. Near occlusion= ICA PSV velocities may be low or undetectable: variable ratio and ICA EDV. 6. Total occlusion=unable to detect flow.
== END | disposition home or self-care (01) ==
LOC: RADUSWWP 15:17
PROVIDERS: ATTEND Family Medicine
DX: R51.9 Headache, unspecified (principal); E78.2 Mixed hyperlipidemia; G31.84 Mild cognitive impairment of uncertain or unknown etiology
CPT/HCPCS: 93880